=== PATIENT | female | born 1980 | race African-American/Black ===

== ENCOUNTER 2020-09-11 05:44 | Emergency (ER) | payer MEDICAID, SELFPAY ==
[2020-09-11 05:45] VITALS: BP 136/87; PULSE 92; RESP 16; TEMP 36.8; O2SAT 98; BMI 32.1
--- NOTE | 2020-09-11 06:33 | ED.VIS.GEN ---
History of Present Illness Chief Complaint: Other, Pain/Inj Detail of Chief Complaint: poss COVID exposure Informant: Patient Onset: Days - past 2 days Associated Symptoms: none Narrative: 40-year-old female who rode in a car with her son who tested positive for Covid in [place] where she picked him up and drove him back to [place]. He has had no respiratory symptoms. They are unsure of exactly which kind of test they had. There has been no contact with anyone else that she knows of with Covid. She has not had Covid or been vaccinated. She has been asymptomatic. She is healthy and has no medical problems. She was concerned about the exposure and wants to be checked out, she states mainly to make sure she does whatever she can to be allowed to stay with her son. Past Medical History - Allergies and Home Meds Allergies/Adverse Reactions: Allergies acetaminophen [From Vicodin] Allergy (Verified 09/11/20 05:44) Rash hydrocodone bitartrate [From Vicodin] Allergy (Verified 09/11/20 05:44) Rash Primary Care Physician: Viki Durham DO [Primary Care Provider] - Past Medical History: None Smoking Status: Current every day smoker Review of Systems General: Denies: Chills, Fever, Sweats Eyes: Denies: Visual changes - bilaterally, Diplopia ENT: Reports: - - No loss of taste or smell. Denies: Bilateral ear pain, Rhinorrhea, Sore throat Cardiovascular: Denies: Chest pain, Palpitations Respiratory: Denies: Dyspnea, Cough, Dyspnea on exertion Gastrointestinal: Denies: Abdominal pain, Nausea, Vomiting, Diarrhea, Melena, Hematochezia Genitourinary: Denies: Dysuria, Hematuria, Frequency Musculoskeletal: Denies: Myalgias, Back pain, Extremity Pain Skin: Denies: Rash, Wounds Neurological: Denies: Headache, Weakness, Numbness Physical Exam Vital Signs/Narrative: Vital Signs Temp Pulse Resp BP Pulse Ox 09/11/20 05:45 98.2 F 92 16 136/87 H 98 Inital Vital Signs reviewed: Yes General: Well nourished, Well developed, Obese, No Acute Distress Head: Normocephalic, Atraumatic ENT: Moist mucous membranes, No rhinorrhea Neck: Supple, - - FROM Respiratory: No distress Skin: Normal color, No rash, No Trauma Neurological: Alert, Oriented x3, Cranial nerves II-XII grossly intact, Normal Strength, Normal Sensation, Normal Gait Psychological: Normal affect, Normal Mood Diagnostic/Tx/Re-eval - Medical Decision Making Sent an outpatient PCR test, patient given instructions for results, advised to quarantine for 14 days, or to follow-up if she develops any symptoms. ED Disposition - Plan for ED Patient: Disposition: Home or Assisted Living Diagnosis: Close exposure to COVID-19 virus Instructions: Coronavirus Disease 2019 (COVID-19): Prevention, Pending Outpatient COVID Test Referrals: Viki Durham DO [Primary Care Provider] - As Needed Additional Instructions: To be safest, you need to quarantine for 14 days, which would be through September 24. If you do not develop any symptoms, you may then exit quarantine.
[2020-09-11 06:46] VITALS: PULSE 88; RESP 18; TEMP 37.1; O2SAT 98
== END 2020-09-11 07:07 | disposition home or self-care (01) ==
LOC: ED 07:00
PROVIDERS: Emergency Provider Emergency Medicine; PCP Family Medicine
DX: Z20.822 Contact with and (suspected) exposure to COVID-19 (principal); E66.9 Obesity, unspecified; F17.200 Nicotine dependence, unspecified, uncomplicated
CPT/HCPCS: 87635; 99282; U0002

== ENCOUNTER 2021-06-13 13:37 | Emergency (ER) | payer MEDICAID, SELFPAY ==
[2021-06-13 13:38] VITALS: BP 153/72; PULSE 77; RESP 18; TEMP 37.2; O2SAT 100; BMI 41.8
--- NOTE | 2021-06-13 15:07 | EX.ED.VIS.UR ---
HPI HPI - URI History of Present Illness Chief Complaint: Headache Narrative Narrative: 40-year-old female presenting with cough, congestion, fatigue and a mild headache. She states this has been ongoing for 3 days. She states she thought it was from working 12-hour shifts but her son tested positive for COVID and now she is concerned she may have COVID. She was not vaccinated against COVID-19. She states she is interested in monoclonal antibodies. She denies chest pain or shortness of breath. She does not have abdominal pain, nausea, vomiting. She states she has no significant medical history. ROS ROS ED Constitutional Constitutional ED: Denies chills or fever(s) Eyes Eyes: Denies blurry vision or diplopia ENT ENT ED: Reports rhinorrhea; Denies sore throat Cardiovascular Cardiovascular: Denies chest pain or palpitations Respiratory/Chest Respiratory/Chest: Reports cough Gastrointestinal Gastrointestinal: Denies abdominal pain, nausea or vomiting Genitourinary Genitourinary ED: Denies dysuria or hematuria Musculoskeletal Musculoskeletal: Reports myalgias; Denies arthralgias Integumentary Denies rash Neurologic Neurologic: Reports headache(s); Denies paresthesias or weakness PFSH PFS Home Medications NK 09/11/20 [History Last Taken Unknown] Allergy/AdvReac Type Severity Reaction Status Date / Time acetaminophen [From Vicodin] Allergy Rash Verified 06/13/21 13:40 hydrocodone bitartrate Allergy Rash Verified 06/13/21 13:40 [From Vicodin] Social History Smoking Status: Current every day smoker EXAM Physical Exam Const Vital Signs: 06/13/21 13:38 Temperature 99 F Temperature Source Oral Pulse Rate 77 Respiratory Rate 18 Blood Pressure 153/72 H Blood Pressure Mean 99 Pulse Ox 100 Oxygen Delivery Method Room Air Positive well nourished General Appearance ED: NAD; Negative for pallor HEENT Reports moist mucous membranes normocephalic Neck no lymphadenopathy, supple and no meningeal signs Resp normal respiratory effort and clear to auscultation bilaterally Cardio Rate: regular rate Rhythm: regular rhythm Neuro oriented x3 and CN's II-XII intact bilaterally Sensorium / Orientation: alert Psych mental status grossly normal Skin General Skin Exam: Negative for jaundice or pallor Rashes: no rashes MDM MDM MDM Narrative Medical decision making narrative: Patient presenting for a COVID test because she has cough and congestion. Her son has COVID-19 already diagnosed at home. She does request that I refer her for monoclonal antibodies. I did obtain a rapid COVID test which was positive. Patient is referred. Her vital signs are normal. Her O2 saturations are 100% and respiratory rate is 18. Pulse is 77. I do not believe she needs blood work or imaging. Impression: 1. COVID-19 Lab Data Attestation: I reviewed the patient's lab results. Discharge Plan Triage Chief Complaint: Headache ED Provider: Robin Rios Dx/Rx/DC Orders Instructions: Coronavirus Disease 2019 (COVID-19): Caring for Yourself or Others, ED - COVID Monoclonal AB Infusion ... Prescriptions: No Action NK RF: 0 Primary Care Provider: Lilian Byrd Referrals: Lilian Byrd MD [Primary Care Provider] - Disposition Disposition: Home, Self Care
== END 2021-06-13 16:05 | disposition home or self-care (01) ==
PROVIDERS: Emergency Provider Student in an Organized Health Care Education/Training Program; PCP Family Medicine; Visit Provider Student in an Organized Health Care Education/Training Program
DX: U07.1 COVID-19 (principal); F17.200 Nicotine dependence, unspecified, uncomplicated
CPT/HCPCS: 87426; 99282

== ENCOUNTER 2022-05-04 07:45 | Emergency (ER) | payer MEDICAID, SELFPAY ==
[2022-05-04 07:46] VITALS: BP 126/96; PULSE 99; RESP 17; TEMP 35.9; O2SAT 100; BMI 42.5
--- NOTE | 2022-05-04 08:22 | EX.ED.DYSGE1 ---
HPI History of Present Illness Chief Complaint: Flank Pain Informant: patient Narrative Narrative: 41-year-old female arriving to the emergency department stating she does not feel well with left flank pain. She notes pain bilaterally but left greater than right. She notes that she has had increased thirst and cannot seem to quench her thirst. She notes urinary frequency. She also notes some ear pain that developed today. No fever. No diarrhea. No vomiting. PFSH PFSH no medical history Home Medications cyclobenzaprine 10 mg tablet 10 mg PO TID PRN Muscle Spasm #15 TABLETS 05/04/22 [Rx Last Taken Unknown] metformin 500 mg tablet 500 mg PO BID #30 tabs 05/04/22 [Rx Last Taken Unknown] Allergy/AdvReac Type Severity Reaction Status Date / Time acetaminophen [From Vicodin] Allergy Rash Verified 05/04/22 07:46 hydrocodone bitartrate Allergy Rash Verified 05/04/22 07:46 [From Vicodin] no surgical history Social History Smoking Status: Never smoker substance use type: does not use ROS ROS ED Constitutional Constitutional ED: Denies chills or weight loss Eyes Eyes: Denies change in vision or diplopia ENT ENT ED: Denies ear pain, rhinorrhea or sore throat Cardiovascular Cardiovascular: Denies chest pain, orthopnea, palpitations or racing heartbeat Respiratory/Chest Respiratory/Chest: Denies cough, dyspnea or orthopnea Gastrointestinal Gastrointestinal: Reports nausea; Denies abdominal pain, diarrhea or vomiting Genitourinary Genitourinary ED: Denies dysuria, hematuria or urinary frequency Musculoskeletal Musculoskeletal: Reports back pain; Denies arthralgias or myalgias Integumentary Denies abscess or rash Neurologic Neurologic: Denies headache(s) or weakness Psychiatric Psychiatric: Denies anxiety, depression, suicidal ideation or suicidal thoughts Endocrine Endocrinology: Reports polydipsia and polyuria; Denies polyphagia Allergic/Immunologic Allergic/Immunologic ED: Denies mouth swelling, tongue swelling or urticaria EXAM Physical Exam Const Vital Signs: 05/04/22 07:46 Temperature 96.7 F L Temperature Source Temporal Pulse Rate 99 Respiratory Rate 17 Blood Pressure 126/96 H Blood Pressure Mean 106 Pulse Ox 100 Oxygen Delivery Method Room Air Positive well nourished, well developed and obese General Appearance ED: well developed Nutritional Appearance: obese HEENT Reports normocephalic, head/scalp atraumatic and moist mucous membranes Eyes PERRL and EOMs intact bilaterally Neck no lymphadenopathy, supple and no JVD Resp normal respiratory effort and clear to auscultation bilaterally Cardio regular rate, regular rhythm and no murmurs GI normal to inspection, nondistended, normoactive bowel sounds and non-tender Palpation: soft Back/Spine no CVA tenderness Back/Spine Narrative: Lumbar paraspinal musculature tenderness to palpation Extremity normal to inspection General Extremety ED: Negative for edema General Extremity: Negative for edema Neuro oriented x3 and CN's II-XII intact bilaterally Sensorium / Orientation: alert Motor Exam: strength 5/5 throughout Psych mental status grossly normal Mood & Affect: Negative for depressed or tearful Skin no rashes or lesions noted and no wounds MDM MDM MDM Narrative Medical decision making narrative: The patient's blood sugar is greater than 400 and hemoglobin A1c is greater than 10. Urinalysis shows no overt infection. Her back is tender with movement I can prescribe some cyclobenzaprine. And we will start her on metformin 500 mg twice daily. She was advised that this will need to be manipulated based on her blood sugar results. She notes understanding the plan and will call her doctor tomorrow. Lab Data Attestation: I reviewed the patient's lab results. Labs: Laboratory Results - last 24 hr 05/04/22 05/04/22 05/04/22 08:18 08:18 08:18 WBC 9.7 RBC 4.95 Hgb 13.4 Hct 40.2 MCV 81.2 MCH 27.1 MCHC 33.3 RDW Std Deviation 37.7 RDW Coeff of Michelle 12.8 Plt Count 315 MPV 10.5 Immature Gran % (Auto) 0.400 Neut % (Auto) 50.0 Lymph % (Auto) 40.6 [place] % (Auto) 7.2 Eos % (Auto) 1.4 Baso % (Auto) 0.4 Absolute Neuts (auto) 4.8 Absolute Lymphs (auto) 3.94 Nucleated RBC % 0 Sodium 134 L Potassium 3.9 Chloride 101 Carbon Dioxide 24.0 Anion Gap 9 BUN 16 Creatinine 1.21 H Estim Creat Clear Calc 65.50 Est GFR (MDRD) Af Amer 63 Est GFR (MDRD) Non-Af 52 L BUN/Creatinine Ratio 13.2 Glucose 431 H Hemoglobin A1c 10.3 H Calcium 8.8 Total Bilirubin 0.30 AST 43 H ALT 50 Alkaline Phosphatase 89 Total Protein 7.8 Albumin 3.9 Globulin 3.9 Albumin/Globulin Ratio 1.0 Urine Color Urine Clarity Urine pH Ur Specific [place] Urine Protein Urine Glucose (UA) Urine Ketones Urine Occult Blood Urine Nitrite Urine Bilirubin Urine Urobilinogen Ur Leukocyte Esterase Urine RBC Urine WBC Ur Squamous Epith Cells Urine Bacteria Urine Mucus 05/04/22 08:40 WBC RBC Hgb Hct MCV MCH MCHC RDW Std Deviation RDW Coeff of Michelle Plt Count MPV Immature Gran % (Auto) Neut % (Auto) Lymph % (Auto) [place] % (Auto) Eos % (Auto) Baso % (Auto) Absolute Neuts (auto) Absolute Lymphs (auto) Nucleated RBC % Sodium Potassium Chloride Carbon Dioxide Anion Gap BUN Creatinine Estim Creat Clear Calc Est GFR (MDRD) Af Amer Est GFR (MDRD) Non-Af BUN/Creatinine Ratio Glucose Hemoglobin A1c Calcium Total Bilirubin AST ALT Alkaline Phosphatase Total Protein Albumin Globulin Albumin/Globulin Ratio Urine Color Yellow Urine Clarity Clear Urine pH 5.0 Ur Specific [place] 1.020 Urine Protein 30 H Urine Glucose (UA) 1000 H Urine Ketones 50 H Urine Occult Blood 25 H Urine Nitrite Negative Urine Bilirubin Negative Urine Urobilinogen Normal Ur Leukocyte Esterase Negative Urine RBC 0 SEEN Urine WBC 0 SEEN Ur Squamous Epith Cells 0-5 SEEN Urine Bacteria 0 SEEN Urine Mucus 0 SEEN Discharge Plan Triage Chief Complaint: Flank Pain ED Provider: Vincent Fletcher Dx/Rx/DC Orders Clinical Impression: New onset type 2 diabetes mellitus, Acute flank pain Instructions: Type 2 Diabetes Prescriptions: New metformin 500 mg tablet 500 mg PO BID Qty: 30 0RF cyclobenzaprine [cyclobenzaprine] 10 mg tablet 10 mg PO TID PRN (Reason: Muscle Spasm) Qty: 15 0RF Primary Care Provider: Lilian Byrd Referrals: Lilian Byrd MD [Primary Care Provider] - 1-2 Weeks Disposition Disposition: Home, Self Care
[2022-05-04 08:40] LABS: Absolute Lymphocyte Count 3.94 X10^3/uL (0.83-4.51); Absolute Neutrophil Count 4.8 X10^3/uL (2.0-7.7); Basophil# 0.04 X10^3/uL; Basophil% 0.4 % (0-1); Eosinophil# 0.14 X10^3/uL; Eosinophils% 1.4 % (0-5); Hematocrit 40.2 % (37-47); Hemoglobin 13.4 g/dL (12.0-15.0); Lymphocyte # 3.94 X10^3/ul (0.83-4.51); Lymphocyte % 40.6 % (19-41); Mean Corp Hgb Conc 33.3 g/dL (32-36); Mean Corpuscular Hgb 27.1 pg (27.0-32.0); Mean Corpuscular Volume 81.2 fL (81-99); Mean Platelet Vol. 10.5 fl (6.2-12.0); Monocyte% 7.2 % (0-10); NRBC Flagged by Analyzer 0 % (0-5); Neutrophil # 4.84 X10^3/uL (2.7-7.7); Platelet Count 315 K/mm3 (150-450); RBC Distribution Width CV 12.8 % (11.6-14.6); RBC Distribution Width SD 37.7 fl (35.1-43.9); Red Blood Count 4.95 M/mm3 (4.2-5.4); White Blood Count 9.7 K/mm3 (4.4-11.0)
[2022-05-04 08:46] LABS: AST(SGOT) 43 U/L (15-37); Alanine Aminotransfer ALT/SGPT 50 U/L (13-56); Albumin, Serum 3.9 g/dL (3.2-5.0); Alkaline Phosphatase 89 U/L (45-117); Anion Gap 9 (5-15); BUN 16 mg/dL (7-18); BUN/Creat Ratio 13.2 RATIO (10-20); Calcium,Total 8.8 mg/dL (8.5-10.1); Chloride 101 mmol/L (98-107); Creatinine, Serum 1.21 mg/dL (0.55-1.02); EST Glomerular Filtration Rate 52 mL/min (>60); Est Glom Filt Rate - Afr Amer 63 mL/min (>60); Globulin 3.9 g/dL (2.2-4.2); Glucose 431 mg/dL (74-106); Potassium 3.9 mmol/L (3.5-5.1); Protein, Total 7.8 g/dL (6.4-8.2); Sodium Level 134 mmol/L (136-145)
[2022-05-04 08:46] LABS: Bacteria 0 SEEN /hpf (None Seen); Mucous, Urine 0 SEEN /hpf (<or=2+); Red Blood Cells-Urine 0 SEEN /hpf (0-5); White Blood Cells 0 SEEN /hpf (0-5)
[2022-05-04 08:50] LABS: Color, Urine Yellow (Yellow); Glucose, Dipstick 1000 mg/dl (Normal); Ketone-Dipstick 50 mg/dl (Negative); Leukocyte Esterase-Dipstick Negative /ul (Negative); Nitrite-Dipstick Negative (Negative); Occult Blood-Urine 25 /ul (Negative); Protein-Dipstick 30 mg/dl (Negative); Urine Bilirubin Dipstick Negative (Negative); Urine Clarity Clear (Clear); Urine Urobilinogen Normal (Normal)
[2022-05-04 09:13] LABS: Squamous Epithelial Cells - UA 0-5 SEEN /hpf (5-10)
[2022-05-04 09:31] LABS: Hemoglobin A1c 10.3 % (3.8-5.6)
== END 2022-05-04 10:38 | disposition home or self-care (01) ==
PROVIDERS: Emergency Provider Emergency Medicine; PCP Family Medicine; Visit Provider Emergency Medicine
DX: E11.9 Type 2 diabetes mellitus without complications (principal); M54.9 Dorsalgia, unspecified; R10.9 Unspecified abdominal pain; E66.9 Obesity, unspecified; Z79.84 Long term (current) use of oral hypoglycemic drugs
CPT/HCPCS: 80053; 81001; 83036; 85025; 99283; A4216

== ENCOUNTER 2022-06-19 14:31 | Outpatient (RCR) | payer MEDICAID, SELFPAY | END 2022-07-08 23:59 | LOC: DC 14:31 | PROVIDERS: PCP Family Medicine; Visit Provider Family Medicine | DX: E11.9 Type 2 diabetes mellitus without complications (principal) | CPT/HCPCS: 97802 ==

== ENCOUNTER → 2022-07-22 | Outpatient (CLI) | payer MEDICAID, SELFPAY ==
[2022-07-22 12:38] LABS: AST(SGOT) 14 U/L (15-37); Alanine Aminotransfer ALT/SGPT 20 U/L (13-56); Albumin, Serum 3.8 g/dL (3.2-5.0); Alkaline Phosphatase 64 U/L (45-117); Anion Gap 12 (5-15); BUN 10 mg/dL (7-18); BUN/Creat Ratio 10.7 RATIO (10-20); Chloride 106 mmol/L (98-107); Cholesterol 195 mg/dL (200); Creatinine, Serum 0.94 mg/dL (0.55-1.02); EST Glomerular Filtration Rate 70 mL/min (>60); Est Glom Filt Rate - Afr Amer 84 mL/min (>60); Globulin 3.8 g/dL (2.2-4.2); Glucose 311 mg/dL (74-106); High Density Lipoprotein 48 mg/dL; Potassium 4.2 mmol/L (3.5-5.1); Protein, Total 7.6 g/dL (6.4-8.2); Sodium Level 137 mmol/L (136-145); Triglycerides 154 mg/dL; Very Low Density Lipoprotein 31 mg/dL (5-40)
[2022-07-22 12:41] LABS: Microalbumin,Random Urine 49.6 mg/L (NO RANGE EST.); Microalbumin:Creatinine Ratio 52.4 mg/g CRE (<30 mg/g CRE)
[2022-07-22 12:42] LABS: Hemoglobin A1c 13.1 % (3.8-5.6)
== END | disposition home or self-care (01) ==
PROVIDERS: PCP Family Medicine; Visit Provider Family Medicine
DX: E11.9 Type 2 diabetes mellitus without complications (principal)
CPT/HCPCS: 36415; 80053; 80061; 82043; 82570; 83036

== ENCOUNTER → 2023-09-11 | Outpatient (CLI) | payer MEDICAID, SELFPAY ==
[2023-09-17 13:09] LABS: Age Gdln ACOG Testing 30-65 (.); HPV APTIMA, High Risk Negative (Negative)
[2023-09-18 16:52] LABS: HPV Reflexed? YES, CHARGE PATIENT
== END | disposition home or self-care (01) ==
LOC: BFHLAB 13:50 → LABSPEC 13:52
PROVIDERS: PCP Family Medicine; Visit Provider Family Medicine
DX: Z12.4 Encounter for screening for malignant neoplasm of cervix (principal)
CPT/HCPCS: 87624; 88175; G0145

== ENCOUNTER → 2024-05-19 | Outpatient (CLI) | payer MEDICAID, SELFPAY ==
[2024-05-19 12:01] LABS: Absolute Neutrophil Count 3.6 X10^3/uL (2.0-7.7); Basophil# 0.03 X10^3/uL; Basophil% 0.4 % (0-1); Eosinophil# 0.04 X10^3/uL; Eosinophils% 0.6 % (0-5); Hematocrit 41.7 % (37-47); Mean Corp Hgb Conc 31.2 g/dL (32-36); Mean Corpuscular Hgb 25.6 pg (27.0-32.0); Mean Corpuscular Volume 82.2 fL (81-99); Mean Platelet Vol. 10.8 fl (6.2-12.0); Monocyte# 0.45 X10^3/uL; Monocyte% 6.4 % (0-10); NRBC Flagged by Analyzer 0 % (0-5); Neutrophil # 3.62 X10^3/uL (2.7-7.7); Neutrophil % 51.2 % (47-70); Platelet Count 339 K/mm3 (150-450); RBC Distribution Width CV 14.6 % (11.6-14.6); RBC Distribution Width SD 43.3 fl (35.1-43.9); Red Blood Count 5.07 M/mm3 (4.2-5.4); White Blood Count 7.1 K/mm3 (4.4-11.0)
[2024-05-19 12:24] LABS: AST(SGOT) 18 U/L (15-37); Alanine Aminotransfer ALT/SGPT 20 U/L (13-56); Albumin, Serum 3.7 g/dL (3.2-5.0); Alkaline Phosphatase 66 U/L (45-117); Anion Gap 4 (5-15); BUN 7 mg/dL (7-18); BUN/Creat Ratio 7.9 RATIO (10-20); Calcium,Total 9.6 mg/dL (8.5-10.1); Chloride 105 mmol/L (98-107); Cholesterol 177 mg/dL (200); Creatinine, Serum 0.89 mg/dL (0.55-1.02); EST Glomerular Filtration Rate 73 mL/min (>60); Est Glom Filt Rate - Afr Amer 88 mL/min (>60); Globulin 3.8 g/dL (2.2-4.2); Glucose 287 mg/dL (74-106); High Density Lipoprotein 68 mg/dL; Protein, Total 7.5 g/dL (6.4-8.2); Sodium Level 136 mmol/L (136-145); Triglycerides 76 mg/dL; Very Low Density Lipoprotein 15 mg/dL (5-40)
[2024-05-19 12:30] LABS: Microalbumin,Random Urine 20.8 mg/L (NO RANGE EST.); Microalbumin:Creatinine Ratio 12.3 mg/g CRE (<30 mg/g CRE)
[2024-05-19 12:56] LABS: Hemoglobin A1c 13.6 % (3.8-5.6)
[2024-05-23 09:22] LABS: C-Peptide 2.6 ng/mL (1.1-4.4); Insulin Level 9.5 uIU/mL (2.6-24.9)
== END | disposition home or self-care (01) ==
LOC: BFHLAB 09:59
PROVIDERS: PCP Family Medicine; Referring Provider Family Medicine; Visit Provider Family Medicine
DX: E11.9 Type 2 diabetes mellitus without complications (principal); R63.4 Abnormal weight loss
CPT/HCPCS: 36415; 80053; 80061; 82043; 82570; 83036; 83525; 84681; 85025

== ENCOUNTER → 2024-06-14 | Outpatient (CLI) | payer BC, SELFPAY ==
--- NOTE | 2024-06-14 08:24 | BI_ITS ---
MAMMOGRAPHY - BILATERAL SCREENING REASON FOR EXAM: Female, 43 years old. Routine annual screening examination. PERTINENT HISTORY: Non-contributory. TECHNIQUE: Digital bilateral breast kushal (3D mammographic acquisition) in the CC and MLO projections. 2-D mediolateral oblique (MLO) and craniocaudad (CC) views of both breasts were obtained. CAD: Full Field Digital Mammography with Computer Added Detection was performed. COMPARISON: Comparison is made with prior outside examination dated January 11, 2021. FINDINGS: Breast Composition: There are scattered areas of fibroglandular density. There are no dominant masses or suspicious calcifications. No other significant abnormalities are identified. There has been no significant change since the prior study. BI/SCRN MAMM (CAD)W/KUSHAL BILAT IMPRESSION: Stable bilateral screening mammogram. Yearly follow-up mammogram recommended. (A) ASSESSMENT CATEGORY: BIRADS Category 1: Negative. A letter regarding these results will be sent to the patient by the facility within 30 days. Approximately 10% of breast cancers are not detected by mammography. A normal mammogram should not delay biopsy of a clinically suspicious abnormality. [id number] Electronically Signed: Tyrone Rodriguez MD at 11:07 EST ,
== END | disposition home or self-care (01) ==
LOC: OPBI 08:23
PROVIDERS: PCP Family Medicine; Referring Provider Family Medicine; Visit Provider Family Medicine
DX: Z12.31 Encounter for screening mammogram for malignant neoplasm of breast (principal)
CPT/HCPCS: 77063; 77067

== ENCOUNTER 2024-07-26 06:17 | Day surgery (SDC) | payer BC, SELFPAY ==
--- NOTE | 2024-06-24 10:34 | PAT.ANE_ITS ---
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 When Was Last Pacemaker Check QUESTION #4 FULL TEXT: You/Your Family Experience fever (hyperthermia) with Anesthesia Last Oral Intake Last Oral intake: Last Oral Intake NPO since Meds taken in AM with sips of water? Meds patient instructed to take am of surgery PONV PONV - computer systems software engineer: PONV - computer systems software engineer Female Yes 06/24/24 09:48 HX of Motion Sickness No 06/24/24 09:48 HX of N/V After Surgery No 06/24/24 09:48 Non-Smoker Yes 06/24/24 09:48 Duration of Surgery greater No 06/24/24 09:48 than 60 minutes Number of Risk Factors 2 06/24/24 09:48 PONV Score Moderate Risk 06/24/24 09:48 Height & Weight Height & Weight: Anesthesia: Height & Weight Height 5 ft 11 in 05/30/24 09:50 Respiratory Assessment Respiratory Assessment - computer systems software engineer: Respiratory Tract Infection Hx - computer systems software engineer Hx Respiratory Tract Infection No 06/24/24 09:48 STOP Sleep Apnea STOP Sleep Apnea - computer systems software engineer: STOP Sleep Apnea - computer systems software engineer Hx Hypertension No 06/24/24 09:48 Hx Sleep Apnea No 06/24/24 09:48 CPAP BIPAP Do you snore loudly (louder No 06/24/24 09:48 than talking or can be heard Do you often feel tired/ No 06/24/24 09:48 fatigued/ sleepy during daytime? Has anyone observed you stop No 06/24/24 09:48 breathing during sleep? STOP Results Negative 06/24/24 09:48 QUESTION #5 FULL TEXT : Do you snore loudly (louder than talking or can be heard through closed doors)? 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 Specify any problems Hx of Preganancy in last 3 No 06/24/24 09:48 Months Nurse Filling Out Transfusion DSCHRIBER 06/24/24 09:48 & Questions: Date: 06/24/24 06/24/24 09:48 Time: 09:50 06/24/24 09:48 Patient unable to answer at this time (ie. confused, unrespo /Reproduction History /Reproductive History - computer systems software engineer: /Reproductive Hx- computer systems software engineer Hx Now No 06/24/24 09:48 Gestational Age (in weeks): EDC: Hx Hx Para Hx Section SAB No 06/24/24 09:48 [facility] Medical History (Updated 06/24/24 @ 09:59 by Christy Castrejon) Depression Wears glasses Foot abrasion Diabetes Arthritis Dietary restriction History of diverticulitis Smoker Shortness of breath on exertion History of pain when walking Acid reflux Diarrhea Constipation Home Medications ?Medication ?Instructions ?Recorded ?Last Taken ?Type cyclobenzaprine 10 mg tablet 10 mg PO TID PRN Muscle Spasm #15 05/04/22 Unknown Rx TABLETS metformin 500 mg tablet 500 mg PO BID #30 tabs 05/04/22 Unknown Rx dulaglutide 3 mg/0.5 mL 3 mg subcut WE 05/30/24 06/22/24 History subcutaneous pen injector (Trulicity) esomeprazole magnesium 20 mg 20 mg PO DAILY 06/24/24 Unknown History capsule,delayed release fluoxetine 10 mg capsule 10 mg PO DAILY 06/24/24 Unknown History latanoprost 0.005 % eye drops 1 drp ophthalmic (eye) QHS 06/24/24 Unknown History lisinopril 2.5 mg tablet 2.5 mg PO DAILY 06/24/24 Unknown History Allergy/AdvReac Type Severity Reaction Status Date / Time acetaminophen (From Vicodin) Allergy Rash Verified 06/24/24 09:46 hydrocodone bitartrate (From Allergy Rash Verified 06/24/24 09:46 Vicodin) Surgical History (Updated 06/24/24 @ 09:56 by Christy Castrejon) Hx of tubal ligation Social History Smoking Status: Current every day smoker tobacco type: cigarettes alcohol intake: never substance use type: does not use Audit: Pertinent Findings Pertinent Findings Additional pertinent findings: Patient is a diabetic. Her hemoglobin A1c is 13.6 and has been elevated over 10 at least for the past 2 years. Recommendation Anesthesia Recommendation Anesthesia recommendation: F/U recommended (Patient is diabetic. She is on Trulicity and had her last dose on June 22, 2024. Trulicity is a GLP-1 agonist which slows down gut motility and stomach emptying. Current recommendations for GLP-1 agonist before procedures is to hold them for 1 week. Please reschedule accordingly.)
[2024-07-26] VITALS (8 sets, daily range): BP systolic 103–132; BP diastolic 49–80; PULSE 76–95; RESP 16; TEMP 36.2–36.5; O2SAT 100; BMI 35.1
--- NOTE | 2024-07-26 07:08 | PCM.PRE.AN2 ---
ASA Classification* ASA Classification ASA Classification: 2 Assessment & Plan Anesthesia* Anesthesia Assessment Anesthesia Assessment: Discussed sedation and/or anesthesia options, risks, benefits, and alternatives with patient/parents/legal guardian/POA. Questions invited. The patient/parents/legal guardian/POA seems to understand and agrees to proceed with anesthesia plan. Reviewed the physical assessment, medical history, allergy history and patient home medications list prior to surgery/procedure/anesthetic and documented any changes. Performed airway and anesthesia risk assessments. Anesthesia Type Anesthesia Type: MAC History Source History Obtained from:: Patient and Chart Anesthesia Focused Assessment* Temperature: 97.1 F Pulse Rate: 84 Blood Pressure: 132/80 Respiratory Rate: 16 Pulse Ox: 100 Oxygen Delivery Method: Room Air Airway Assessment Mouth opens: >3 cm Mallampati Score: II Teeth Condition: Missing (Several missing teeth. The rest are tight.) Neck Range of motion (ROM): Full ROM Focused Labs Anesthesia Preop lab: CBC WBC 7.1 K/mm3 (4.4-11.0) 05/19/24 09:59 05/19/24 RBC 5.07 M/mm3 (4.2-5.4) 05/19/24 09:59 05/19/24 Hgb 13.0 g/dL (12.0-15.0) 05/19/24 09:59 05/19/24 Hct 41.7 % (37-47) 05/19/24 09:59 05/19/24 Plt Count 339 K/mm3 (150-450) 05/19/24 09:59 05/19/24 CHEMISTRY Potassium 4.0 mmol/L (3.5-5.1) 05/19/24 09:59 05/19/24 Sodium 136 mmol/L (136-145) 05/19/24 09:59 05/19/24 BUN 7 mg/dL (7-18) 05/19/24 09:59 05/19/24 Creatinine 0.89 mg/dL (0.55-1.02) 05/19/24 09:59 05/19/24 Glucose 287 mg/dL (74-106) H 05/19/24 09:59 05/19/24 TSH 1.24 uIU/mL (0.358-3.74) 05/19/14 09:46 05/19/14 COAG Lab additional comments: Fingerstick glucose was 126 this morning. 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 When Was Last Pacemaker Check QUESTION #4 FULL TEXT: You/Your Family Experience fever (hyperthermia) with Anesthesia Last Oral Intake Last Oral intake: Last Oral Intake NPO since 00:00 07/26/24 06:42 Meds taken in AM with sips of water? 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 Female Yes 06/24/24 09:48 HX of Motion Sickness No 06/24/24 09:48 HX of N/V After Surgery No 06/24/24 09:48 Non-Smoker Yes 06/24/24 09:48 Duration of Surgery greater No 06/24/24 09:48 than 60 minutes Number of Risk Factors 2 06/24/24 09:48 PONV Score Moderate Risk 06/24/24 09:48 Height & Weight Height & Weight: Anesthesia: Height & Weight Height 5 ft 11 in 07/26/24 06:42 Weight: 114.305 kg 07/26/24 06:42 Body Mass Index (BMI) 35.1 07/26/24 06:42 Respiratory Assessment Respiratory Assessment - tile and 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 No fevers.) STOP Sleep Apnea STOP Sleep Apnea - tile and mottle supervisor: STOP Sleep Apnea - tile and mottle supervisor Hx Hypertension No 06/24/24 09:48 Hx Sleep Apnea No 06/24/24 09:48 CPAP BIPAP Do you snore loudly (louder No 06/24/24 09:48 than talking or can be heard Do you often feel tired/ No 06/24/24 09:48 fatigued/ sleepy during daytime? Has anyone observed you stop No 06/24/24 09:48 breathing during sleep? STOP Results Negative 06/24/24 09:48 QUESTION #5 FULL TEXT : Do you snore loudly (louder than talking or can be heard through closed doors)? 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 Specify any problems Hx of Preganancy in last 3 No 06/24/24 09:48 Months Nurse Filling Out Transfusion DSCHRIBER 06/24/24 09:48 & Questions: Date: 06/24/24 06/24/24 09:48 Time: 09:50 06/24/24 09:48 Patient unable to answer at this time (ie. 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 supervisor: /Reproductive Hx- tile and mottle supervisor Hx Now No 06/24/24 09:48 Gestational Age (in weeks): EDC: Hx Hx Para Hx Section SAB No 06/24/24 09:48 PFSH Medical History Depression Wears glasses Foot abrasion Diabetes Arthritis Dietary restriction History of diverticulitis Smoker Shortness of breath on exertion History of pain when walking Acid reflux Diarrhea Constipation Home Medications ?Medication ?Instructions ?Recorded ?Last Taken ?Type cyclobenzaprine 10 mg tablet 10 mg PO TID PRN Muscle Spasm #15 05/04/22 Unknown Rx TABLETS metformin 500 mg tablet 500 mg PO BID #30 tabs 05/04/22 07/24/24 Rx dulaglutide 3 mg/0.5 mL 3 mg subcut WE 05/30/24 07/13/24 History subcutaneous pen injector (Trulicity) esomeprazole magnesium 20 mg 20 mg PO DAILY 06/24/24 Unknown History capsule,delayed release fluoxetine 10 mg capsule 10 mg PO DAILY 06/24/24 Unknown History latanoprost 0.005 % eye drops 1 drp ophthalmic (eye) QHS 06/24/24 Unknown History lisinopril 2.5 mg tablet 2.5 mg PO DAILY 06/24/24 Unknown History Allergy/AdvReac Type Severity Reaction Status Date / Time hydrocodone bitartrate (From Allergy Rash Verified 07/26/24 06:40 Vicodin) Surgical History Hx of tubal ligation Social History Smoking Status: Current every day smoker tobacco type: cigarettes alcohol intake: never substance use type: does not use Review of Systems (Anesthesia) ROS Narrative System reviewed and no additional complaints, except as documented.
[2024-07-26 07:20] LABS: Bedside Glucose 129 mg/dL (74-106)
--- NOTE | 2024-07-26 07:27 | HP.PCM_ITS ---
HPI - General General Date of Admission: 07/26/24 Date of Service: 07/26/24 Chief Complaint: Colonoscopy HPI Narrative The patient is a 43-year-old female who is here today to undergo colonoscopy. She has had some recent constipation as well as some abdominal discomfort. She does have a cousin with a history of colon cancer [facility] Medical History Depression Wears glasses Foot abrasion Diabetes Arthritis Dietary restriction History of diverticulitis Smoker Shortness of breath on exertion History of pain when walking Acid reflux Diarrhea Constipation Home Medications ?Medication ?Instructions ?Recorded ?Last Taken ?Type cyclobenzaprine 10 mg tablet 10 mg PO TID PRN Muscle S pasm #15 05/04/22 Unknown Rx TABLETS metformin 500 mg tablet 500 mg PO BID #30 tabs 05/0407/24/24 Rx dulaglutide 3 mg/0.5 mL 3 mg subcut WE 05/30/2410/30 History subcutaneous pen injector (Trulicity) esomeprazole magnesium 20 mg 20 mg PO DAILY 06/24/24 U nknown History capsule,delayed release fluoxetine 10 mg capsule 10 mg PO DAILY 06/24/24 Unkn own History latanoprost 0.005 % eye drops 1 drp ophthalmic (eye) Q HS 06/24/24 Unknown History lisinopril 2.5 mg tablet 2.5 mg PO DAILY 06/24/24 Unk nown History Allergy/AdvReac Type Severity Reaction Status Date / Time hydrocodone bitartrate (From Allergy Rash Verified 07/26/24 06:40 Vicodin) Surgical History Hx of tubal ligation Social History Smoking Status: Current every day smoker (Patient smoked today.) tobacco type: cigarettes alcohol intake: never substance use type: does not use ROS Eyes Eyes: Reports systems reviewed and no addt'l complaints, except as documented ENT HEENT: Reports systems reviewed and no addt'l complaints, except as documented Cardiovascular Cardiovascular: Reports systems reviewed and no addt'l complaints, except as documented Respiratory/Chest Respiratory/Chest: Reports systems reviewed and no addt'l complaints, except as documented Gastrointestinal Gastrointestinal: Reports systems reviewed and no addt'l complaints, except as documented Genitourinary Genitourinary: Reports systems reviewed and no addt'l complaints, except as documented Vital Signs Vital Signs Vital Signs: 07/26/24 06:42 07/26/24 06:42 07/26/24 07:19 Temperature 97.1 F L 97.1 F L Temperature Source Temporal Pulse Rate 84 84 Respiratory Rate 16 16 Respiratory Pattern Normal Blood Pressure 132/80 H 132/80 H Blood Pressure Mean 97 Blood Pressure Source Monitor Blood Pressure Position Semi-Fowlers Blood Pressure Location Left Arm Pulse Ox 100 100 Oxygen Delivery Method Room Air Room Air Weight Weight: 252 lb Body Mass Index (BMI) 35.1 Physical Exam Const alert, oriented x3 and no apparent distress Results Lab / Micro Data Labs: Laboratory Results - last 24 hr 07/26/24 06:44: POC Glucose 129 H Assessment & Plan Assessment/Plan (1) Constipation: PLAN: Plan The patient is a 43-year-old female in need of a colonoscopy. We discussed the details of the planned procedure and she wishes to proceed. This will begin momentarily
--- NOTE | 2024-07-26 07:30 | COLBX_PTH ---
PATIENT: ESTRELLA GONZALEZ LOC: EN U#:[id number] AGE/SX: 43/F ROOM: RE07/26/[address]: Dr. Sonu Bueno MD : 1980 BED: DIS: 07/26/2024 SPEC #: [id number] RECD: 07/26/24 10:41 STATUS: HUNTER REMichael #: [id number] FELIPE: 07/26/24 07:[address]: Sonu Bueno DEPT: SURGICAL PATHOLOGY RECD BY: Sue Matta ENTERED: 07/26/24 12:05 SP TYPE: COLON BX OTHR DR: Dr. Lilian Byrd MD Tissues: Sigmoid colon biopsy Procedures: Surgery Specimen Level IV HEADER OPERATION: Colonoscopy PRE-OP DIAGNOSIS: Constipation TISSUE SUBMITTED: Sigmoid polyp biopsy MICROSCOPIC DIAGNOSIS Sigmoid polyp, biopsy: Hyperplastic polyp. 07/27/2024 MICROSCOPIC DESCRIPTION Slides are reviewed. GROSS DESCRIPTION Received in fixative is one container labeled with the patient's name and designated Sigmoid polyp biopsy. The specimen consists of two irregular fragments of light hughes soft tissue that in aggregate measure 0.7 x 0.3 x 0.2 cm. The specimen is totally submitted in one cassette. 07/26/2024 TC:1 CPT:46318
--- NOTE | 2024-07-26 08:39 | PCM.POST.ANE ---
Anesthesia: Postop Eval I Current Vital Signs Temperature: 97.5 F Pulse Rate: 88 Blood Pressure: 112/79 Respiratory Rate: 16 Pulse Ox: 100 Oxygen Delivery Method: Room Air Assessment Airway patent: Yes Spontaneous unlabored respirations: Yes Mental status: Awake and Calm nausea: No Vomiting: No Anesthesia Complication: No Fluid Hydration Crystalloid volume administer (ml): 50 Total IV fluid infused: 50 Progress Note Anesthesia document: Postop Eval 1 completed: Yes
--- NOTE | 2024-07-26 08:40 | OP.CCLET_ITS ---
07/26/2024 Lilian Byrd [place] [id number] [place] [address] Re : Colonoscopy procedure for Matthew Mc Dear Dr. Byrd This procedure was performed on Friday, July 26, 2024. My impressions and recommendations are as follows: Impressions : - Preparation of the colon was unsatisfactory. - Diverticulosis in the sigmoid colon. - One 4 mm polyp in the sigmoid colon, removed with a cold biopsy forceps. Resected and retrieved. - The examination was otherwise normal on direct and retroflexion views. Recommendations : - Discharge patient to home (ambulatory). - High fiber diet indefinitely. - Await pathology results. - Repeat colonoscopy in 3 - 5 years for surveillance. - Return to my office PRN. - Continue present medications. My findings are described in the full procedure note, which is enclosed. If I can be of further assistance, please feel free to contact me at . Sincerely, Sonu Bueno MD 07/26/2024 8:39:23 AM This report has been signed electronically.
--- NOTE | 2024-07-26 08:40 | OP.COLON_ITS ---
Patient Name: Matthew Mc Procedure Date: 07/26/2024 7:55 AM Date of : 1980 Age: 43 Procedure: Colonoscopy Indications: Screening for colorectal malignant neoplasm Providers: Sonu Bueno MD Referring MD: Lilian Byrd Medicines: Monitored Anesthesia Care Patient Profile: Refer to note in patient chart for documentation of history and physical. Last Colonoscopy: several years ago. Complications: No immediate complications. Estimated blood loss: None. Procedure: Pre-Anesthesia Assessment: - Prior to the procedure, a History and Physical was performed, and patient medications and allergies were reviewed. The patient's tolerance of previous anesthesia was also reviewed. The risks and benefits of the procedure and the sedation options and risks were discussed with the patient. All questions were answered, and informed consent was obtained. Prior Anticoagulants: The patient has taken no anticoagulant or antiplatelet agents. ASA Grade Assessment: II - A patient with mild systemic disease. After reviewing the risks and benefits, the patient was deemed in satisfactory condition to undergo the procedure. After I obtained informed consent, the scope was passed under direct vision. Throughout the procedure, the patient's blood pressure, pulse, and oxygen saturations were monitored continuously. The adult colonoscope was introduced through the anus and advanced to the cecum, identified by appendiceal orifice and ileocecal valve. The ileocecal valve, appendiceal orifice, and rectum were photographed. The entire colon was examined. The colonoscopy was somewhat difficult due to unsatisfactory bowel prep. The patient tolerated the procedure well. The quality of the bowel preparation was unsatisfactory. Moderate Sedation: See the other procedure note for documentation of moderate sedation with intraservice time. Scope In: 8:04:31 AM Scope Withdrawal Time 0 hours 20 minutes 18 seconds Scope Out: 8:32:35 AM Total Procedure Duration Time 0 hours 28 minutes 4 seconds Findings: The perianal and digital rectal examinations were normal. Multiple small and large-mouthed diverticula were found in the sigmoid colon. A 4 mm polyp was found in the sigmoid colon. The polyp was semi-sessile. The polyp was removed with a cold biopsy forceps. Resection and retrieval were complete. Verification of patient identification for the specimen was done by the nurse using the patient's name, date and medical record number. Estimated blood loss was minimal. The exam was otherwise without abnormality on direct and retroflexion views. Impression: - Preparation of the colon was unsatisfactory. - Diverticulosis in the sigmoid colon. - One 4 mm polyp in the sigmoid colon, removed with a cold biopsy forceps. Resected and retrieved. - The examination was otherwise normal on direct and retroflexion views. Recommendation: - Discharge patient to home (ambulatory). - High fiber diet indefinitely. - Await pathology results. - Repeat colonoscopy in 3 - 5 years for surveillance. - Return to my office PRN. - Continue present medications. Procedure Code(s): --- Professional --- 79364, Colonoscopy, flexible; with biopsy, single or multiple Diagnosis Code(s): --- Professional --- Z12.11, Encounter for screening for malignant neoplasm of colon K57.30, Diverticulosis of large intestine without perforation or abscess without bleeding D12.5, Benign neoplasm of sigmoid colon CPT copyright 2021 [employer]. All rights reserved. The codes documented in this report are preliminary and upon home assessment nurse review may be revised to meet current compliance requirements. Sonu Bueno MD 07/26/2024 8:39:23 AM This report has been signed electronically. Number of Addenda: 0 Note Initiated On: 07/26/2024 7:55 AM
--- NOTE | 2024-07-26 10:57 | PCM.POSTANE2 ---
Anesthesia Postop Eval I Sum Postop Eval Completion status Anesthesia document: Postop Eval 1 completed: Yes Anesthesia Postop Eval I Summary Anesthesia Postop Eval I Summary: Anesthesia Postop Eval I: Assessment Summary Airway patent Yes 07/26/24 08:41 [email or web address] Spontaneous unlabored Yes 07/26/24 08:41 [email or web address] respirations Mental status Awake,Calm 07/26/24 08:41 [email or web address] nausea No 07/26/24 08:41 [email or web address] Vomiting No 07/26/24 08:41 [email or web address] Anesthesia Postop Eval I: Fluid Summary Crystalloid volume administer 50 07/26/24 08:41 [email or web address] (ml) Colloids volume administered ( ml) Blood Product volume administered (ml) Total IV fluid infused 50 07/26/24 08:41 [email or web address] Anesthesia Postop Eval I: Summary Notes Anesthesia Complication No 07/26/24 08:41 [email or web address] Anesthesia Complication Comment: Post-operative progress note Anesthesia: Postop Eval II Evaluation Mental status: Awake and Calm Pain Level: 0 nausea: No Vomiting: No Complications Anesthesia Complication: No
== END 2024-07-26 09:07 | disposition home or self-care (01) ==
LOC: EN 06:18 → AC 06:19
PROVIDERS: PCP Family Medicine; Referring Provider Family Medicine; Visit Provider Surgery
PROC: 0DJD8ZZ Inspection of Lower Intestinal Tract, Via Natural or Artificial Opening Endoscopic (ICD-10-PCS; CPT 45378; principal; 2024-07-26 07:25)
DX: Z12.11 Encounter for screening for malignant neoplasm of colon (principal); E11.9 Type 2 diabetes mellitus without complications; D12.5 Benign neoplasm of sigmoid colon; K57.30 Diverticulosis of large intestine without perforation or abscess without bleeding; K59.00 Constipation, unspecified; Z79.84 Long term (current) use of oral hypoglycemic drugs; Z79.85 Long-term (current) use of injectable non-insulin antidiabetic drugs; Z79.899 Other long term (current) drug therapy; Z80.0 Family history of malignant neoplasm of digestive organs
CPT/HCPCS: 45380; 82962; 88305; A4216; J2405

== ENCOUNTER → 2025-05-19 | Outpatient (CLI) | payer MEDICAID, SELFPAY ==
--- OUTSIDE RECORDS SUMMARY | 2025-05-19 11:01 | XMS RPT_ITS | CCD ---
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 Role Phone PHYSICIAN, NOT RECORDED Primary Care Physician U Joshua Trinidad MD Primary Care Provider Joshua Vera MD Primary Care Provider Mikarina, Lilian Primary Care Unavailable Miedel, Lilian Referring Unavailable Sonu Bueno Attending Unavailable Miedel, Lilian Referring Unavailable Miedel, Lilian Attending Unavailable Miedel, Lilian Primary Care Unavailable Miedel, Lilian Primary Care Unavailable Miedel, Lilian Referring Unavailable Miedel, Lilian Attending Unavailable Miedel, Lilian Primary Care Unavailable Miedel, Lilian Referring Unavailable Sonu Bueno Attending Unavailable Miedel, Lilian Primary Care Unavailable Miedel, Lilian Referring Unavailable Sonu Bueno Attending Unavailable Sonu Bueno Consulting Unavailable Allergies Allergy Classification Reported Allergen(s) Allergy Type Date of Onset Reaction(s) Facility (3 sources) Acetaminophen Drug Allergy 05-04-2022 [facility] (4 sources) HYDROcodone; Translations: [hydrocodone bitartrate] Drug Allergy 05-04-2022 [facility] (3 sources) Acetaminophen / HYDROcodone; Translations: [acetaminophen-hyd rocodone] Drug Allergy 05-27-2013 [facility] (1 source) Acetaminophen Drug Allergy 05-30-2024 [facility] Medications Current Medications Medication Drug Class(es) Dates Sig (Normalized) Sig (Original) acetaminophen 325 mg / oxyCODONE hydrochloride 5 mg oral tablet (1 source) Opioid Agonist Start: 01-22-2023 End: 01-25-2023 take 1 tablet by mouth every six hours as needed for pain Percocet 5 mg-325 mg oral tablet Dose = 1 tab(s), Oral, q6h, PRN Pain, X 3 day(s), # 8 tab(s), 0 Refill(s), Diverticulitis, 9.7 Start Date: 01/22/23 Stop Date: 01/25/23 Status: Ordered ciprofloxacin 500 mg oral tablet (1 source) Quinolone Antimicrobial Start: 01-22-2023 End: 01-29-2023 Cipro 500 mg oral tablet Dose : 500 mg = 1 tab(s), Oral, q12h, X 7 day(s), # 13 tab(s), 0 Refill(s), 01/29/23 9:53:00 PM EDT, 9.7 Start Date: 01/22/23 Stop Date: 01/29/23 Status: Ordered cyclobenzaprine hydrochloride 10 mg oral tablet (3 sources) Muscle Relaxant Start: 05-04-2022 take 10 mg by mouth three times daily Cyclobenzaprine Active 10 MG PO THREE TIMES A DAY May 04, 2022 1:00am ibuprofen 800 mg oral tablet (2 sources) Nonsteroidal Anti-inflammatory Drug Start: 04-09-2021 take 1 tablet by mouth every eight hours as needed ibuprofen (MOTRIN) 800 mg tablet Take 1 tablet by mouth every 8 hours as needed (FOR PAIN. TAKE WITH FOOD). 30 tablet 1 04/09/2021 Active Comment on above: Take 1 tablet by janeen th every 8 hours as needed (FOR PAIN. TAKE WITH FOOD). metFORMIN hydrochloride 500 mg oral tablet (3 sources) Biguanide Start: 05-04-2022 take 500 mg by mouth twice daily Metformin Active 500 MG PO TWICE A DAY May 04, 2022 1:00am metroNIDAZOLE 500 mg oral tablet (1 source) Nitroimidazole Antimicrobial Start: 01-22-2023 End: 01-29-2023 metroNIDAZOLE 500 mg oral tablet Dose : 500 mg = 1 tab(s), Oral, q8h, X 7 day(s), # 20 tab(s), 0 Refill(s), 01/29/23 9:54:00 PM EDT, 9.7 Start Date: 01/22/23 Stop Date: 01/29/23 Status: Ordered ondansetron 4 mg disintegrating oral tablet (1 source) Serotonin-3 Receptor Antagonist Start: 01-22-2023 End: 01-25-2023 ondansetron 4 mg oral tablet, disintegrating Dose : 4 mg = 1 tab(s), Oral, q8h, PRN as needed for nausea/vomiting, X 3 day(s), # 8 tab(s), 0 Refill(s), 01/25/23 9:53:00 PM EDT Start Date: 01/22/23 Stop Date: 01/25/23 Status: Ordered Problems Active Problems Problem Classification Problem Date Documented Da te Episodic/Chronic Diabetes mellitus without complication (6 sources) Type 2 diabetes mellitus; Translations: [Type 2 diabetes mellitus without complications] Onset: 12-27-2020 05-12-2022 Chronic Disorders of teeth and jaw (3 sources) Pain; Translations: [Dental caries, unspecified] 07-20-2013 Episodic Diverticulosis and diverticulitis (2 sources) Diverticula of intestine; Translations: [Diverticulitis of intestine, part unspecified, without perforation or abscess without bleeding] Onset: 01-22-2023 Chronic Fever of unknown origin (3 sources) Fever; Translations: [Fever, unspecified] 06-18-2021 Episodic Immunizations and screening for infectious disease (6 sources) Contact with or exposure to other viral diseases; Translations: [Close exposure to COVID-19 virus] 09-12-2020 Episodic Osteoarthritis (4 sources) Primary gonarthrosis, bilateral; Translations: [Bilateral primary osteoarthritis of knee] Onset: 12-24-2020 12-24-2020 Chronic Other gastrointestinal disorders (2 sources) Constipation, unspecified; Translations: [Constipation, unspecified] Onset: 08-19-2024 Episodic Substance-related disorders (4 sources) Smoker; Translations: [Nicotine dependence, unspecified, uncomplicated] Onset: 12-17-2020 12-17-2020 Chronic Past or Other Problems Problem Classification Problem Date Documented Da te Episodic/Chronic Abdominal pain (7 sources) Flank pain; Translations: [Unspecified abdominal pain] Onset: 05-27-2013 05-12-2022 Episodic Other screening for suspected conditions (not mental disorders or infectious disease) (4 sources) Patient encounter status; Translations: [Encounter for screening mammogram for malignant neoplasm of breast] Onset: 07-06-2024 02-11-2023 Episodic Ovarian cyst (2 sources) Complex cyst of right ovary; Translations: [Other ovarian cyst, right side] Onset: 12-24-2020 12-24-2020 Episodic Residual codes; unclassified (2 sources) Family history of leukemia; Translations: [Family history of leukemia] Onset: 12-17-2020 12-17-2020 Episodic Results Test Name Value Interpretation Reference Range Facility Bedside Glucoseon 07-26-2024 FINGERSTICK GLU 129 mg/dL High 74-106 [facility] Comment on above: Result Comment: JORGE BLAND OF PATIENT CARE PER NURSING PROTOCOL Performed By: #### L 501.080 #### [facility] [address] [place], [address] Colonoscopy Reporton 025 Colonoscopy Report [facility] Medical Records Department [address] [place] [address] Colonoscopy Report MR#: [id number] Acct: [id number] Name: ESTRELLA MC Rep #: [id number] : 1980 43 From: Sonu Bueno MD PCP: Dr. Lilian Byrd MD Status:[facility] Patient Name: Estrella Mc Procedure Date: 07/26/2024 7:55 AM Date of : 1980 Age: 43 Procedure: Colonoscopy Indications: Screening for colorectal malignant neoplasm Providers: Sonu Bueno MD Referring MD: Lilian Byrd Medicines: Monitored Anesthesia Care Patient Profile: Refer to note in patient chart for documentation of history and physical. Last Colonoscopy: several years ago. Complications: No immediate complications. Estimated blood loss: None. Procedure: Pre-Anesthesia Assessment: - Prior to the procedure, a History and Physical was performed, and patient medications and allergies were reviewed. The patient's tolerance of previous anesthesia was also reviewed. The risks and benefits of the procedure and the sedation options and risks were discussed with the patient. All questions were answered, and informed consent was obtained. Prior Anticoagulants: The patient has taken no anticoagulant or antiplatelet agents. ASA Grade Assessment: II - A patient with mild systemic disease. After reviewing the risks and benefits, the patient was deemed in satisfactory condition to undergo the procedure. After I obtained informed consent, the scope was passed under direct vision. Throughout the procedure, the patient's blood pressure, pulse, and oxygen saturations were monitored continuously. The adult colonoscope was introduced through the anus and advanced to the cecum, identified by appendiceal orifice and ileocecal valve. The ileocecal valve, appendiceal orifice, and rectum were photographed. The entire colon was examined. The colonoscopy was somewhat difficult due to unsatisfactory bowel prep. The patient tolerated the procedure well. The quality of the bowel preparation was unsatisfactory. Moderate Sedation: See the other procedure note for documentation of moderate sedation with intraservice time. Scope In: 8:04:31 AM Scope Withdrawal Time 0 hours 20 minutes 18 seconds Scope Out: 8:32:35 AM Total Procedure Duration Time 0 hours 28 minutes 4 seconds Findings: The perianal and digital rectal examinations were normal. Multiple small and large-mouthed diverticula were found in the sigmoid colon. A 4 mm polyp was found in the sigmoid colon. The polyp was semi-sessile. The polyp was removed with a cold biopsy forceps. Resection and retrieval were complete. Verification of patient identification for the specimen was done by the nurse using the patient's name, date and medical record number. Estimated blood loss was minimal. The exam was otherwise without abnormality on direct and retroflexion views. Impression: - Preparation of the colon was unsatisfactory. - Diverticulosis in the sigmoid colon. - One 4 mm polyp in the sigmoid colon, removed with a cold biopsy forceps. Resected and retrieved. - The examination was otherwise normal on direct and retroflexion views. Recommendation: - Discharge patient to home (ambulatory). - High fiber diet indefinitely. - Await pathology results. - Repeat colonoscopy in 3 - 5 years for surveillance. - Return to my office PRN. - Continue present medications. Procedure Code(s): --- Professional --- 42783, Colonoscopy, flexible; with biopsy, single or multiple Diagnosis Code(s): --- Professional --- Z12.11, Encounter for screening for malignant neoplasm of colon K57.30, Diverticulosis of large intestine without perforation or abscess without bleeding D12.5, Benign neoplasm of sigmoid colon CPT copyright 2021 [employer] [place] [employer]. All rights reserved. The codes documented in this report are preliminary and upon supervisor grower review may be revised to meet current compliance requirements. Sonu Bueno MD 07/26/2024 8:39:23 AM This report has been signed electronically. Number of Addenda: 0 Note Initiated On: 07/26/2024 7:55 AM 07/26/24 0839 Date Sonu Bueno MD Cosigner Signature: Date (if indicated) CC: Dr. Lilian Byrd MD; Dr. Sonu Bueno MD Date Dictated: 07/26/24 0755 Date Transcribed: Allied Health Teacher: СЕРГЕЙ Vargas [facility] MR/POSTOP.NEHEMIAS 07-26-2024 MR/POSTOP.[facility] Medical Records Department [address] [place] [address] Anesthesia Postop Eval I 07/26/2439 MR#: [id number] Acct: [id number] Name: ESTRELLA MC Rep #: [id number] : 1980 43 From: Fredo Azul PCP: Dr. Lilian Byrd MD Status:REG SDC Y Race: AA Location: [place] [address] Anesthesia: Postop Eval I Current Vital Signs Temperature: 97.5 F Pulse Rate: 88 Blood Pressure: 112/79 Respiratory Rate: 16 Pulse Ox: 100 Oxygen Delivery Method: Room Air Assessment Airway patent: Yes Spontaneous unlabored respirations: Yes Mental status: Awake and Calm nausea: No Vomiting: No Anesthesia Complication: No Fluid Hydration Crystalloid volume administer (ml): 50 Total IV fluid infused: 50 Progress Note Anesthesia document: Postop Eval 1 completed: Yes 07/26/24840 Date Fredo Corneliuser Signature: Date CC: Signed Normal [facility] MR/AENUDGMC7lf 07-26-2024 MR/POSTOPAN2 [facility] Medical Records Department [address] [place] [address] Anesthesia Postop Eval II 07/26/24 105 MR#: [id number] Acct: [id number] Name: ESTRELLA MC Rep #: [id number] : 1980 43 From: Fredo Azul PCP: Dr. Lilian Byrd MD Status:[facility] Y Race: AA Location: EN Anesthesia Postop Eval I Sum Postop Eval Completion status Anesthesia document: Postop Eval 1 completed: Yes Anesthesia Postop Eval I Summary Anesthesia Postop Eval I Summary: Anesthesia Postop Eval I: Assessment Summary Airway patent Yes 07/26/24 08:41 [email or web address] Spontaneous unlabored Yes 07/26/24 08:41 [email or web address] respirations Mental status Awake,Calm 07/26/24 08:41 [email or web address] nausea No 07/26/24 08:41 [email or web address] Vomiting No 07/26/24 08:41 [email or web address] Anesthesia Postop Eval I: Fluid Summary Crystalloid volume administer 50 07/26/24 08:41 [email or web address] (ml) Colloids volume administered ( ml) Blood Product volume administered (ml) Total IV fluid infused 50 07/26/24 08:41 [email or web address] Anesthesia Postop Eval I: Summary Notes Anesthesia Complication No 07/26/24 08:41 [email or web address] Anesthesia Complication Comment: Post-operative progress note Anesthesia: Postop Eval II Evaluation Mental status: Awake and Calm Pain Level: 0 nausea: No Vomiting: No Complications Anesthesia Complication: No 07/26/24 105 Date Fredo Beebeigner Signature: Date CC: Signed Normal [facility] Surgery Specimen Level Alberto 07-26-2024 Surgery Specimen Level IV Patient Age/Sex Location Account Attending Physician ESTRELLA MC 43/F EN [id number] Dr. Sonu Bueno MD Specimen: [id number] Received: 07/26/24 Status: LINDADa Poe Num: [id number] Spec Type: COLON BX Subm Dr: Dr. Sonu Bueno MD HEADER OPERATION: Colonoscopy PRE-OP DIAGNOSIS: Constipation TISSUE SUBMITTED: Sigmoid polyp biopsy MICROSCOPIC DIAGNOSIS Sigmoid polyp, biopsy: Hyperplastic polyp. SJ.mr 07/27/2024 MICROSCOPIC DESCRIPTION Slides are reviewed. GROSS DESCRIPTION Received in fixative is one container labeled with the patient's name and designated Sigmoid polyp biopsy. The specimen consists of two irregular fragments of light hughes soft tissue that in aggregate measure 0.7 x 0.3 x 0.2 cm. The specimen is totally submitted in one cassette. . 07/26/2024 TC:1 CPT:96239 Patient Age/Sex Location Account Attending Physician ESTRELLA MC 43/F EN [id number] Dr. Sonu Bueno MD Signed (signature on file) Dr. Nick Flores MD 07/27/24 1213 Normal [facility] Comment on above: Performed By: #### P SUIV ####[facility] [id number] [facility] [address] [place], [place], [address] MR/PAT.ANEon 06-24-2024 MR/PAT.[facility] Medical Records Department [address] [place] [address] PAT - Anesthesia 06/24/24 1034 MR#: [id number] Acct: [id number] Name: ESTRELLA MC Rep #: [id number] : 1980 43 From: Joe Hernandez MD PCP: Dr. 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 When Was Last Pacemaker Check QUESTION #4 FULL TEXT: You/Your Family Experience fever (hyperthermia) with Anesthesia Last Oral Intake Last Oral intake: Last Oral Intake NPO since Meds taken in AM with sips of water? Meds patient instructed to take am of surgery PONV PONV - regenerator operator: PONV - regenerator operator Female Yes 06/24/24 09:48 HX of Motion Sickness No 06/24/24 09:48 HX of N/V After Surgery No 06/24/24 09:48 Non-Smoker Yes 06/24/24 09:48 Duration of Surgery greater No 06/24/24 09:48 than 60 minutes Number of Risk Factors 2 06/24/24 09:48 PONV Score Moderate Risk 06/24/24 09:48 Height Weight Height Weight: Anesthesia: Height Weight Height 5 ft 11 in 05/30/24 09:50 Respiratory Assessment Respiratory Assessment - regenerator operator: Respiratory Tract Infection Hx - regenerator operator Hx Respiratory Tract Infection No 06/24/24 09:48 STOP Sleep Apnea STOP Sleep Apnea - regenerator operator: STOP Sleep Apnea - regenerator operator Hx Hypertension No 06/24/24 09:48 Hx Sleep Apnea No 06/24/24 09:48 CPAP BIPAP Do you snore loudly (louder No 06/24/24 09:48 than talking or can be heard Do you often feel tired/ No 06/24/24 09:48 fatigued/ sleepy during daytime? Has anyone observed you stop No 06/24/24 09:48 breathing during sleep? STOP Results Negative 06/24/24 09:48 QUESTION #5 FULL TEXT : Do you snore loudly (louder than talking or can be heard through closed doors)? Tobacco Use History Tobacco Use History - regenerator operator: Tobacco Use History - regenerator operator Tobacco Use Smoking Status Current every day smoker 06/24/24 09:48 Hx Tobacco Use Yes 06/24/24 09:48 Years Smoking Packs Smoked per Day Smoking Cessation Date was within the last 15 years Hx Smoking Cessation Date Hx Smoking Cessation Counseling Hematologic Medial History Hematologic Hx - regenerator operator: Hematologic Medical Hx - gang investigator Hx of Blood Transfusion No 06/24/24 09:48 Hx of Transfusion in last 3 No 06/24/24 09:48 Months Date of Last Transfusion (if within last 3 months) Ever experience any problems No 06/24/24 09:48 with transfusion(s)? Specify any problems Hx of Preganancy in last 3 No 06/24/24 09:48 Months Nurse Filling Out Transfusion DSCHRIBER 06/24/24 09:48 Questions: Date: 06/24/24 06/24/24 09:48 Time: 09:50 06/24/24 09:48 Patient unable to answer at this time (ie. confused, unrespo /Reproducti on History /Reproducti ve History - regenerator operator: /Reproducti ve Hx- regenerator operator Hx Now No 06/24/24 09:48 Gestational Age (in weeks): EDC: Hx Hx Para Hx Section SAB No 06/24/24 09:48 [facility] Medical History (Updated 06/24/24 @ 09:59 by Christy Castrejon) Depression Wears glasses Foot abrasion Diabetes Arthritis Dietary restriction History of diverticulitis Smoker Shortness of breath on exertion History of pain when walking Acid reflux Diarrhea Constipation Home Medications ???Medication ???Instructions ???Recorded ???Last Taken ???Type cyclobenzaprine 10 mg tablet 10 mg PO TID PRN Muscle Spasm #15 05/04/22 Unknown Rx TABLETS metformin 500 mg tablet 500 mg PO BID #30 tabs 05/04/22 Unknown Rx dulaglutide 3 mg/0.5 mL 3 mg subcut WE 05/30/24 06/22/24 History subcutaneous pen injector (Trulicity) esomeprazole magnesium 20 mg 20 mg PO DAILY 06/24/24 Unknown History capsule,delayed release fluoxetine 10 mg capsule 10 mg PO DAILY 06/24/24 Unknown History latanoprost 0.005 % eye drops 1 drp ophthalmic (eye) QHS 06/24/24 Unknown History lisinopril 2.5 mg tablet 2.5 mg PO DAILY 06/24/24 Unknown History Allergy/A (more content not included)... Normal [facility] SCRN MAMM (CAD)W/KUSHAL BILATo n 06-14-2024 SCRN MAMM (CAD)W/KUSHAL BILAT [facility] Imaging Services [address] [place], [place] [address] SCRN MAMM (CAD)W/KUSHAL BILAT MR#: [id number] Acct: [id number] Name: CARLOSBARBARADELMER Sunshine Rep #: [id number] : 1980 F 43 From: Tyrone santos MD PCP: Dr. Lilian Byrd MD Status: REG CL Study: SCRN MAMM (CAD)W/KUSHAL BILAT Date of Exam: 12/30 Exam# [id number] Ordering Dr: Lilian Byrd MD [id number] MAMMOGRAPHY - BILATERAL SCREENING REASON FOR EXAM: Female, 43 years old. Routine annual screening examination. PERTINENT HISTORY: Non-contributory. TECHNIQUE: Digital bilateral breast kushal (3D mammographic acquisition) in the CC and MLO projections. 2-D mediolateral oblique (MLO) and craniocaudad (CC) views of both breasts were obtained. CAD: Full Field Digital Mammography with Computer Added Detection was performed. COMPARISON: Comparison is made with prior outside examination dated January 11, 2021. FINDINGS: Breast Composition: There are scattered areas of fibroglandular density. There are no dominant masses or suspicious calcifications. No other significant abnormalities are identified. There has been no significant change since the prior study. BI/SCRN MAMM (CAD)W/KUSHAL BILAT IMPRESSION: Stable bilateral screening mammogram. Yearly follow-up mammogram recommended. (A) ASSESSMENT CATEGORY: BIRADS Category 1: Negative. A letter regarding these results will be sent to the patient by the facility within 30 days. Approximately 10% of breast cancers are not detected by mammography. A normal mammogram should not delay biopsy of a clinically suspicious abnormality. [id number] Electronically Signed: Tyrone Rodriguez MD at 11:07 EST Reading Location ID and State: [facility] / [place] , Service support , CC: Dr. Lilian Byrd MD Allied Health Teacher: Signed Normal [facility] Visit Reporton 05-30 Surgery Visit Report [facility] [address] [place] [address]. [address] [place] [address] OFFICE VISIT Date of Service: 05/30/24 MR#: [id number] Acct: [id number] Name: ESTRELLA MC Rep #: [id number] : 1980 Provider: Dr. Sonu baker MD Age/Sex: 43/F Location: [facility] Status: Signed Intake Vital Signs 06/19/22 16:51 05/30/24 09:50 Height 5 ft 10 in 5 ft 11 in Weight: 241 lb 6 oz BMI 33.6 BP 136/84 H Blood Pressure Location Rt brachial Position Sitting Respiration 18 Pulse 95 Pulse Source Monitor Temp 97.2 F L Temp Source Temporal Pulse Oximetry (%) 99 Oxygen Delivery Method room air Intake Visit Reasons: CHANGE OF BOWEL HABITS Chief Complaint: change of bowel habits Is patient in pain?: No Allergies acetaminophen (From Vicodin) Allergy (Verified 05/30/24 09:52) Rash hydrocodone bitartrate (From Vicodin) Allergy (Verified 05/30/24 09:52) Rash Medications ???Medication ???Instructions ???Recorded ???Confirmed ???Type cyclobenzaprine 10 mg tablet 10 mg PO TID PRN Muscle Spasm #15 05/04/22 05/30/24 Rx TABLETS metformin 500 mg tablet 500 mg PO BID #30 tabs 05/04/22 05/30/24 Rx dulaglutide 3 mg/0.5 mL mg subcut 05/30/24 05/30/24 History subcutaneous pen injector (Trulicity) PFSH Medical History Acid reflux Diarrhea Constipation Social History Smoking Status: Never smoker alcohol intake: never substance use type: does not use HPI HPI HPI: The patient is a 43-year-old female who is being seen today to discuss setting up a colonoscopy. She was referred to us by her PCP. She does have a family history of colon cancer but this was in a second cousin. She does state that she does have some alternating constipation with diarrhea. She denies any blood in her stools. She is on diabetic medication as well as Trulicity. She presents today to establish screening colonoscopy as she wishes to be proactive with her health and also to investigate the change in bowel habits which is a fairly new change for her. ROS General General: Yes weight change and fatigue; No appetite, colon cancer, breast cancer or weakness HEENT HEENT: Yes difficulty swallowing; No eye injury, eye surgery, swollen glands or hoarseness Endo Endocrine: No thyroid disease, diabetes mellitus, thyroid cancer, Hair loss, heat intolerance or cold intolerance Skin Skin: No rash or changing moles Musc Musculoskeletal: No back problems, arthritis, rheumatoid arthritis, gout or joint pain Cardio Cardiovascular: No murmur, pacemaker, heart disease, atrial fibrillation, high blood pressure, heart attack, heart stent, palpitations, shortness of breat with exertion or chest pain Psych Psychiatric: Yes depression and anxiety; No hearing voices Resp Respiratory: No shortness of breath, No sleep apnea, No cough, No COPD, No asthma, No emphysema and No wheezing Gastro Gastrointestinal: Yes abdominal pain, No nausea or vomiting, Yes diarrhea, Yes constipation, No blood in stool, Yes acid reflux, No hemorrhoids, No ulcers, No gallbladder problem and No bl ack,tarry stools Gigi Hematologic: No blood thinners, No blood disorders, No bleeding, No anemia and No blood clots Neuro Neurologic: No numbness, No tingling and No weakness Exam Const General: cooperative, healthy appearing and no acute distress HENMT Head: normal to inspection Eyes General: appearance normal, both eyes and all related structures Neck Neck: normal visual inspection GI Inspection: normal to inspection Assessment and Plan Assessment and Plan (1) Constipation: Status: Acute Plan: The patient is a 43-year-old female who presents today for colonoscopy discussion. She does have a family history of colon cancer in a second cousin. She is also noticed some changes in her bowel movements most notably alternating constipation and diarrhea. We discussed the details of the planned procedure including risk benefits and alternatives and she wishes to proceed. This will be scheduled in a timely manner. Coding Level of Care Code Off vis,new,level 3 Diagnoses Constipation K59.00 05/30/24 1117 Date Sonu Bueno MD Cosigner Signature: Date (if applicable) CC: Dr. Lilian Byrd MD Normal [facility] C-Peptideon 05-23-2024 C PEPTIDE 2.6 ng/mL Normal 1.1-4.4 [facility] Comment on above: Result Comment: C-Pe ptide reference interval is for fasting patients. Performed By: #### L 100.0100, L501.9985, L502.0250, L3100.7750, L3300.3500, L500.4100, L500.4050 ####[facility] [address] [place], [place], [id number] Insulin Levelon 05-23-2024 INSULIN,FASTING 9.5 uIU/mL Normal 2.6-24.9 [facility] Comment on above: Result Comment: Perf ormed at: [facility] [address] [id number] Section Chief: Forrest Ashby PhD, Phone: [phone] Performed By: #### L 100.0100, L501.9985, L502.0250, L3100.7750, L3300.3500, L500.4100, L500.4050 ####[facility] [address], [address] CBC W/Diff, Automatedon 05-08 Absolute Lymph 2.90 X10 3/uL Normal 0.83-4.51 [facility] Comment on above: Performed By: #### L 100.0100, L501.9985, L502.0250, L3100.7750, L3300.3500, L500.4100, L500.4050 #### [facility] [address], [address] Absolute Neut 3.6 X10 3/uL Normal 2.0-7.7 [facility] Comment on above: Performed By: #### L 100.0100, L501.9985, L502.0250, L3100.7750, L3300.3500, L500.4100, L500.4050 #### [facility] [address], [address] Basophils/100 WBC (Bld) 0.4 % Normal 0-[address] [facility] Comment on above: Performed By: #### L 100.0100, L501.9985, L502.0250, L3100.7750, L3300.3500, L500.4100, L500.4050 #### [facility] [address], [address] Eosinophils/100 WBC (Bld) 0.6 % Normal 0-5 [facility] Comment on above: Performed By: #### L 100.0100, L501.9985, L502.0250, L3100.7750, L3300.3500, L500.4100, L500.4050 #### [facility] [address], [address] Erythrocyte distribution width (RBC) [Ratio] 14.6 % Normal 11.6-14.6 [facility] Comment on above: Performed By: #### L 100.0100, L501.9985, L502.0250, L3100.7750, L3300.3500, L500.4100, L500.4050 #### [facility] [address], [address] Hematocrit (Bld) [Volume fraction] 41.7 % Normal 37-47 [facility] Comment on above: Performed By: #### L 100.0100, L501.9985, L502.0250, L3100.7750, L3300.3500, L500.4100, L500.4050 #### [facility] [address], [address] Hemoglobin (Bld) [Mass/Vol] 13.0 g/dL Normal 12.0-15.0 [facility] Comment on above: Performed By: #### L 100.0100, L501.9985, L502.0250, L3100.7750, L3300.3500, L500.4100, L500.4050 #### [facility] [address], [address] IG% 0.400 Normal 0.0-0.9 [facility] Comment on above: Result Comment: IG% - Immature Granulocytes (promyelocytes, myelocytes and metamyelocytes) > 1% indicates that a LEFT SHIFT is Present. Performed By: #### L 100.0100, L501.9985, L502.0250, L3100.7750, L3300.3500, L500.4100, L500.4050 #### [facility] [address] [facility] [place], [address] Lymphocytes/100 WBC (Bld) 41.0 % Normal 19-41 [facility] Comment on above: Performed By: #### L 100.0100, L501.9985, L502.0250, L3100.7750, L3300.3500, L500.4100, L500.4050 #### [facility] [address], [address] MCH (RBC) [Entitic mass] 25.6 pg Low 27.0-32.0 [facility] Comment on above: Performed By: #### L 100.0100, L501.9985, L502.0250, L3100.7750, L3300.3500, L500.4100, L500.4050 #### [facility] [address], [address] MCHC (RBC) [Mass/Vol] 31.2 g/dL Low 32-36 [facility] Comment on above: Performed By: #### L 100.0100, L501.9985, L502.0250, L3100.7750, L3300.3500, L500.4100, L500.4050 #### [facility] [address] [place], [address] MCV (RBC) [Entitic vol] 82.2 fL Normal 81-[address] [facility] Comment on above: Performed By: #### L 100.0100, L501.9985, L502.0250, L3100.7750, L3300.3500, L500.4100, L500.4050 #### [facility] [address], [address] Monocytes/100 WBC (Bld) 6.4 % Normal 0-[address] [facility] Comment on above: Performed By: #### L 100.0100, L501.9985, L502.0250, L3100.7750, L3300.3500, L500.4100, L500.4050 #### [facility] [address] [place], [address] Neutrophils/100 WBC (Bld) 51.2 % Normal 47-70 [facility] Comment on above: Performed By: #### L 100.0100, L501.9985, L502.0250, L3100.7750, L3300.3500, L500.4100, L500.4050 #### [facility] [address] [place], [address] Nucleated RBC (Bld) [#/Vol] 0 10*3/uL Normal 0-5 [facility] Comment on above: Performed By: #### L 100.0100, L501.9985, L502.0250, L3100.7750, L3300.3500, L500.4100, L500.4050 #### [facility] [address], [address] Platelet mean volume (Bld) [Entitic vol] 10.8 fL Normal 6.2-12.0 [facility] Comment on above: Performed By: #### L 100.0100, L501.9985, L502.0250, L3100.7750, L3300.3500, L500.4100, L500.4050 #### [facility] [address], [address] Platelets (Bld) [#/Vol] 339 10*3/uL Normal 150-450 [facility] Comment on above: Performed By: #### L 100.0100, L501.9985, L502.0250, L3100.7750, L3300.3500, L500.4100, L500.4050 #### [facility] [address], [address] RBC (Bld) [#/Vol] 5.07 10*6/uL Normal 4.2-5.4 [facility] Comment on above: Performed By: #### L 100.0100, L501.9985, L502.0250, L3100.7750, L3300.3500, L500.4100, L500.4050 #### [facility] [address], [address] RDW SD 43.3 fl Normal 35.1-43.9 [facility] Comment on above: Performed By: #### L 100.0100, L501.9985, L502.0250, L3100.7750, L3300.3500, L500.4100, L500.4050 #### [facility] [address], [address] WBC (Bld) [#/Vol] 7.1 10*3/uL Normal 4.4-11.0 [facility] Comment on above: Performed By: #### L 100.0100, L501.9985, L502.0250, L3100.7750, L3300.3500, L500.4100, L500.4050 #### [facility] [address], [address] Comprehensive Metabolic Prof [facility] 05-19-2024 Albumin [Mass/Vol] 3.7 g/dL Normal 3.2-5.0 [facility] Comment on above: Performed By: #### L 100.0100, L501.9985, L502.0250, L3100.7750, L3300.3500, L500.4100, L500.4050 #### [facility] [address], [address] Albumin/Globulin [Mass ratio] 1.0 {ratio} Normal 0.9-2.4 [facility] Comment on above: Performed By: #### L 100.0100, L501.9985, L502.0250, L3100.7750, L3300.3500, L500.4100, L500.4050 #### [facility] [address], [address] ALK P 66 U/L Normal 45-117 [facility] Comment on above: Performed By: #### L 100.0100, L501.9985, L502.0250, L3100.7750, L3300.3500, L500.4100, L500.4050 #### [facility] [address], [address] ALT [Catalytic activity/Vol] 20 U/L Normal 13-56 [facility] Comment on above: Performed By: #### L 100.0100, L501.9985, L502.0250, L3100.7750, L3300.3500, L500.4100, L500.4050 #### [facility] [address], [address] AST [Catalytic activity/Vol] 18 U/L Normal 15-37 [facility] Comment on above: Performed By: #### L 100.0100, L501.9985, L502.0250, L3100.7750, L3300.3500, L500.4100, L500.4050 #### [facility] [address], [address] Bilirubin [Mass/Vol] 0.40 mg/dL Normal 0.20-1.00 [facility] Comment on above: Result Comment: For patients on eltrombopag therapy, use of Dimension Bryan TBIL is not recommended. Performed By: #### L 100.0100, L501.9985, L502.0250, L3100.7750, L3300.3500, L500.4100, L500.4050 #### [facility] [address], [address] BUN/CRE 7.9 RATIO Low 10-20 [facility] Comment on above: Performed By: #### L 100.0100, L501.9985, L502.0250, L3100.7750, L3300.3500, L500.4100, L500.4050 #### [facility] [address], [address] CA,Total 9.6 mg/dL Normal 8.5-10.1 [facility] Comment on above: Performed By: #### L 100.0100, L501.9985, L502.0250, L3100.7750, L3300.3500, L500.4100, L500.4050 #### [facility] [address], [address] Chloride [Moles/Vol] 105 mmol/L Normal 98-107 [facility] Comment on above: Performed By: #### L 100.0100, L501.9985, L502.0250, L3100.7750, L3300.3500, L500.4100, L500.4050 #### [facility] [address], [address] CO2 [Moles/Vol] 27.0 mmol/L Normal 21.0-32.0 [facility] Comment on above: Performed By: #### L 100.0100, L501.9985, L502.0250, L3100.7750, L3300.3500, L500.4100, L500.4050 #### [facility] [address] [place], [place], [id number] Creatinine [Mass/Vol] 0.89 mg/dL Normal 0.55-1.02 [facility] Comment on above: Result Comment: The validity of the calculated GFR GFRAA in patients over 70 years has not been determined. Clinical correlation is essential. Performed By: #### L 100.0100, L501.9985, L502.0250, L3100.7750, L3300.3500, L500.4100, L500.4050 #### [facility] [address] [place], [place], [id number] (433) EST GFR - AA 88 mL/min Normal >60 [facility] Comment on above: Result Comment: Afri can Citizen Of [place] GFR Calc Performed By: #### L 100.0100, L501.9985, L502.0250, L3100.7750, L3300.3500, L500.4100, L500.4050 #### [facility] [address] [place], [place], [id number] GAP 4 Low 5-15 [facility] Comment on above: Performed By: #### L 100.0100, L501.9985, L502.0250, L3100.7750, L3300.3500, L500.4100, L500.4050 #### [facility] [address] [place], [place], [id number] (704) GFR/1.73 sq M.predicted among non-blacks MDRD (S/P/Bld) [Vol rate/Area] 73 mL/min/{1.73_m2} Normal >60 [facility] Comment on above: Result Comment: Non- GFR Calc Performed By: #### L 100.0100, L501.9985, L502.0250, L3100.7750, L3300.3500, L500.4100, L500.4050 #### [facility] [address], [address] Globulin (S) [Mass/Vol] 3.8 g/dL Normal 2.2-4.[address] [facility] Comment on above: Performed By: #### L 100.0100, L501.9985, L502.0250, L3100.7750, L3300.3500, L500.4100, L500.4050 #### [facility] [address], [address] Glucose [Mass/Vol] 287 mg/dL High 74-106 [facility] Comment on above: Result Comment: Gluc ose result greater than or equal to 200 mg/dL suggests DIABETES MELLITUS per A.D.A. criteria. Performed By: #### L 100.0100, L501.9985, L502.0250, L3100.7750, L3300.3500, L500.4100, L500.4050 #### [facility] [address], [address] Potassium [Moles/Vol] 4.0 mmol/L Normal 3.5-5.1 [facility] Comment on above: Performed By: #### L 100.0100, L501.9985, L502.0250, L3100.7750, L3300.3500, L500.4100, L500.4050 #### [facility] [address], [address] Sodium [Moles/Vol] 136 mmol/L Normal 136-145 [facility] Comment on above: Performed By: #### L 100.0100, L501.9985, L502.0250, L3100.7750, L3300.3500, L500.4100, L500.4050 #### [facility] [address], [address] T PROT 7.5 g/dL Normal 6.4-8.2 [facility] Comment on above: Performed By: #### L 100.0100, L501.9985, L502.0250, L3100.7750, L3300.3500, L500.4100, L500.4050 #### [facility] [address], [address] Urea nitrogen [Mass/Vol] 7 mg/dL Normal 7-18 [facility] Comment on above: Performed By: #### L 100.0100, L501.9985, L502.0250, L3100.7750, L3300.3500, L500.4100, L500.4050 #### [facility] [address], [address] Hemoglobin A1con 05-19-2024 HbA1c (Bld) [Mass fraction] 13.6 % High 3.8-5.6 [facility] Comment on above: Result Comment: Norm al < 5.7 % Prediabetic 5.7 - 6.4 % Diabetic >or= 6.5 % Please note range changes. Performed By: #### L 100.0100, L501.9985, L502.0250, L3100.7750, L3300.3500, L500.4100, L500.4050 #### [facility] [address], [address] Lipid Profileon 05-19-2024 Cholesterol [Mass/Vol] 177 mg/dL Normal 200 [facility] Comment on above: Result Comment: <200 mg/dL Desirable 200-240 mg/dL Borderline >240 mg/dL High Risk Performed By: #### L 100.0100, L501.9985, L502.0250, L3100.7750, L3300.3500, L500.4100, L500.4050 #### [facility] [address], [address] Cholesterol in HDL [Mass/Vol] 68 mg/dL Normal [facility] Comment on above: Result Comment: The drugs N-Acetylcysteine and Metamizole may falsely depress this assay. Reference Range HDL <40 mg/dL Low HDL Cholesterol HDL >or= 60 mg/dL High HDL Cholesterol Performed By: #### L 100.0100, L501.9985, L502.0250, L3100.7750, L3300.3500, L500.4100, L500.4050 #### [facility] [address], [address] Cholesterol in LDL [Mass/Vol] 94 mg/dL Normal 0-130 [facility] Comment on above: Performed By: #### L 100.0100, L501.9985, L502.0250, L3100.7750, L3300.3500, L500.4100, L500.4050 #### [facility] [address], [address] Cholesterol in VLDL [Mass/Vol] 15 mg/dL Normal 5-40 [facility] Comment on above: Performed By: #### L 100.0100, L501.9985, L502.0250, L3100.7750, L3300.3500, L500.4100, L500.4050 #### [facility] [address], [address] Triglyceride [Mass/Vol] 76 mg/dL Normal [facility] Comment on above: Result Comment: The drugs N-Acetylcysteine and Metamizole may falsely depress this assay. Serum Triglycerides Reference Interval Normal <150 mg/dL Borderline high 150 - 199 mg/dL High 200 - 499 mg/dL Very High > or = 500 mg/dL Performed By: #### L 100.0100, L501.9985, L502.0250, L3100.7750, L3300.3500, L500.4100, L500.4050 #### [facility] [address], [address] Microalb:Creat Ratio,Random URon 05-19-2024 Creatinine [Mass/Vol] 169.00 mg/dL Normal NO RAN GE EST. [facility] Comment on above: Performed By: #### L 100.0100, L501.9985, L502.0250, L3100.7750, L3300.3500, L500.4100, L500.4050 #### [facility] [address], [address] MALB:CRE 12.3 mg/g CRE Normal <30 mg/g CRE [facility] Comment on above: Performed By: #### L 100.0100, L501.9985, L502.0250, L3100.7750, L3300.3500, L500.4100, L500.4050 #### [facility] [address], [address] MICROALBUMIN,UR 20.8 mg/L Normal NO RANGE EST. [facility] Comment on above: Performed By: #### L 100.0100, L501.9985, L502.0250, L3100.7750, L3300.3500, L500.4100, L500.4050 #### [facility] [address] [place], [place], [id number] Cervical or vaginal specimen microscopic examination by liquid based cytology (reportOrdered By: Lilian Byrd on 09-11-2023 Cytology report Cyto stain.thin prep Doc (Cvx/Vag) Comment . [facility] Comment on above: Criteria not met, HP V Genotype not performed.Performed at: [address] [id number] Director: Tara Garcia MD, Phone: [phone] at: [address] [id number] Director: Dustin Skelton MD, Phone: [phone] at: [address] [id number] Director: Tara Garcia MD, Phone: [phone] Cervical or vagninal specime n microscopic examination by cytology stain (reported asOrdered By: Lilian Byrd on 09-11-2023 Cytology report Cyto stain Doc (Cvx/Vag) Comment . [facility] Comment on above: The Pap smear is a s creening test designed to aid in thedetection of premalignant and malignant conditions of theuterine cervix. It is not a diagnostic procedure andshould not be used as the sole means of detecting cervicalcancer. Both false-positive and false-negative reports dooccur. Laboratory - CytologyOrdered By: Lilian Byrd on 09-11-2023 Rn Care Transition Cyto stain Nom (Cvx/Vag) [ID] Comment . [facility] Comment on above: Sivakumar Guzman, Cytote chnologist (ASCP) Laboratory - Miscellaneous t estsOrdered By: Lilian Byrd on 09-11-2023 Service comment (Unsp spec) [Interp] . . [facility] No Panel InformationOrdered By: Lilian Byrd on 09-11-2023 Pap Smear Additional Comments 30-65 . [facility] Thin prep Papanicolaou smear with manual screeningOrdered By: Lilian Byrd on 09-11-2023 Thin prep Papanicolaou smear with manual screening Comment . [facility] Comment on above: NEGATIVE FOR INTRAEP ITHELIAL LESION OR MALIGNANCY. This liquid based Th inPrep(R) pap test was screened withthe use of an image guided system. LABORATORYOrdered By: SYSTEM SYSTEM on 01-22-2023 Albumin BCP dye [Mass/Vol] 3.8 G/dL Invalid Interpretation Code 3.5 - 5.0 G/dL AO ADM SS Albumin/Globulin [Mass ratio] 1.2 {ratio} Invalid Interpretation Code 1.1 - 2.5 ratio AO ADM SS ALP [Catalytic activity/Vol] 59 U/L Invalid Interpretation Code 40 - 135 U/L AO ADM SS ALT With P-5'-P [Catalytic activity/Vol] 22 U/L Invalid Interpretation Code 14 - 59 U/L AO ADM SS AST With P-5'-P [Catalytic activity/Vol] 15 U/L Invalid Interpretation Code 10 - 40 U/L AO ADM SS Basophil, Absolute 0.1 103/mcL Invalid Interpretation Code 0.0 - 0.2 10^3/mcL AO Workflow SS Basophils/100 WBC (Bld) 0.7 % Invalid Interpretation Code 0.0 - 2.5 % AO Workflow SS Bilirubin [Mass/Vol] 0.2 mg/dL Invalid Interpretation Code 0.2 - 1.0 mg/dL AO ADM SS Comment on above: Interpretive Data: U se of this assay is not recommended for patients undergoing treatment with eltrombopag due to the potential for falsely elevated results. Calcium [Mass/Vol] 8.9 mg/dL Invalid Interpretation Code 8.4 - 10.2 mg/dL AO ADM SS Chloride [Moles/Vol] 102 mmol/L Invalid Interpretation Code 98 - 107 mmol/L AO ADM SS CO2 [Moles/Vol] 26 mmol/L Invalid Interpretation Code 22 - 29 mmol/L AO ADM SS Creatinine [Mass/Vol] 1.36 mg/dL Invalid Interpretation Code 0.55 - 1.02 mg/dL AO ADM SS Electrolyte Balance 11.0 mEq/L Invalid Interpretation Code 4.0 - 15.0 mEq/L AO ADM SS Eosinophil, Absolute 0.2 103/mcL Invalid Interpretation Code 0.0 - 0.4 10^3/mcL AO Workflow SS Eosinophils/100 WBC (Bld) 1.8 % Invalid Interpretation Code 0.0 - 7.0 % AO Workflow SS Erythrocyte distribution width (RBC) [Ratio] 14.2 % Invalid Interpretation Code 11.5 - 14.5 % AO Workflow SS GFR/1.73 sq M.predicted among blacks MDRD (S/P/Bld) [Vol rate/Area] 51 ml/min/1.73sqm Invalid Interpretation Code AO Chemistry S Comment on above: Interpretive Data: GFR Population mean for , Non- Americans Ages 20-29 = 116 mL/min/1.73 sq.m. Ages 30-39 = 107 mL/min/1.73 sq.m. Ages 40-49 = 99 mL/min/1.73 sq.m. Ages 50-59 = 93 mL/min/1.73 sq.m. Ages 60-69 = 85 mL/min/1.73 sq.m. Ages 70+ = 75 mL/min/1.73 sq.m. Chronic Kidney Disease: Less than 60 mL/min/1.73 square meters End Stage Renal Disease: Less than 15 mL/min/1.73 square meters GFR/1.73 sq M.predicted among non-blacks MDRD (S/P/Bld) [Vol rate/Area] 42 ml/min/1.73sqm Invalid Interpretation Code AO Chemistry S Comment on above: Interpretive Data: GFR Population mean for , Non- Americans Ages 20-29 = 116 mL/min/1.73 sq.m. Ages 30-39 = 107 mL/min/1.73 sq.m. Ages 40-49 = 99 mL/min/1.73 sq.m. Ages 50-59 = 93 mL/min/1.73 sq.m. Ages 60-69 = 85 mL/min/1.73 sq.m. Ages 70+ = 75 mL/min/1.73 sq.m. Chronic Kidney Disease: Less than 60 mL/min/1.73 square meters End Stage Renal Disease: Less than 15 mL/min/1.73 square meters Globulin 3.3 G/dL Invalid Interpretation Code AO ADM SS Glucose [Mass/Vol] 140 mg/dL Invalid Interpretation Code 70 - 105 mg/dL AO ADM SS Hematocrit (Bld) [Volume fraction] 35.0 % Invalid Interpretation Code 37.0 - 47.0 % AO Workflow SS Hemoglobin (Bld) [Mass/Vol] 11.3 G/dL Invalid Interpretation Code 12.0 - 16.0 G/dL AO Workflow SS Lipase [Catalytic activity/Vol] 41 U/L Invalid Interpretation Code 16 - 77 U/L AO ADM SS Lymphocyte, Absolute 4.1 103/mcL Invalid Interpretation Code 0.8 - 3.9 10^3/mcL AO Workflow SS Lymphocytes/100 WBC (Bld) 34.7 % Invalid Interpretation Code 10.0 - 50.0 % AO Workflow SS MCH (RBC) [Entitic mass] 25.7 pg Invalid Interpretation Code 27.0 - 31.2 pg AO Workflow SS MCHC 32.3 G/dL Invalid Interpretation Code 33.0 - 37.0 G/dL AO Workflow SS MCV (RBC) [Entitic vol] 79.4 fL Invalid Interpretation Code 80.0 - 94.0 fL AO Workflow SS Monocyte distribution width Auto (Bld) [Entitic vol] 16.92 1 Invalid Interpretation Code 0.00 - 20.00 AO Workflow SS Comment on above: Result Comment: For ED adult patients suspected of sepsis, MDW<=20.0 does not rule out sepsis or risk of sepsis Monocyte, Absolute 0.8 103/mcL Invalid Interpretation Code 0.2 - 1.0 10^3/mcL AO Workflow SS Monocytes/100 WBC (Bld) 6.5 % Invalid Interpretation Code 1.7 - 13.0 % AO Workflow SS Neutrophil, Absolute 6.6 103/mcL Invalid Interpretation Code 2.9 - 6.2 10^3/mcL AO Workflow SS Neutrophils/100 WBC (Bld) 56.3 % Invalid Interpretation Code 37.0 - 80.0 % AO Workflow SS Platelet mean volume (Bld) [Entitic vol] 7.1 fL Invalid Interpretation Code 7.4 - 10.4 fL AO Workflow SS Platelets (Bld) [#/Vol] 359 103/mcL Invalid Interpretation Code 130 - 400 10^3/mcL AO Workflow SS Potassium [Moles/Vol] 3.9 mmol/L Invalid Interpretation Code 3.5 - 5.1 mmol/L AO ADM SS Protein [Mass/Vol] 7.1 G/dL Invalid Interpretation Code 6.4 - 8.2 G/dL AO ADM SS RBC (Bld) [#/Vol] 4.41 106/mcL Invalid Interpretation Code 4.20 - 5.40 10^6/mcL AO Workflow SS Sodium [Moles/Vol] 139 mmol/L Invalid Interpretation Code 136 - 145 mmol/L AO ADM SS Urea nitrogen [Mass/Vol] 10 mg/dL Invalid Interpretation Code 7 - 18 mg/dL AO ADM SS Urea nitrogen/Creatinine [Mass ratio] 7 ratio Invalid Interpretation Code 7 - 27 ratio AO ADM SS WBC (Bld) [#/Vol] 11.7 103/mcL Invalid Interpretation Code 4.6 - 10.8 10^3/mcL AO Workflow SS LABORATORYOrdered By: Adina Lindsey on 01-22-2023 Appearance (U) Slightly Cloudy *ABN* (01/22/23 7:29 PM) Invalid Interpretation Code Clear AO Auto Urine SS Bacteria LM.HPF (Urine sed) [#/Area] Trace /HPF Invalid Interpretation Code AO Auto Urine SS Bilirubin Ql (U) Small *ABN* (01/22/23 7:29 PM) Invalid Interpretation Code Negative AO Auto Urine SS Color (U) Gini Invalid Interpretation Code AO Auto Urine SS Glucose Test strip (U) [Mass/Vol] Negative Invalid Interpretation Code Negative AO Auto Urine SS HCG ( test) Ql Negative (01/22/23 7:29 PM) Invalid Interpretation Code AO Manual Urine SS Hemoglobin Auto test strip (U) [Mass/Vol] Negative (01/22/23 7:29 PM) Invalid Interpretation Code Negative AO Auto Urine SS Ketones Ql (U) Negative Invalid Interpretation Code Negative AO Auto Urine SS test (u) int Not detected Invalid Interpretation Code AO Manual Urine SS UA Leuk Est Negative (01/22/23 7:29 PM) Invalid Interpretation Code Negative AO Auto Urine SS UA Mucous Trace /HPF Invalid Interpretation Code AO Auto Urine SS UA Nitrite Negative (01/22/23 7:29 PM) Invalid Interpretation Code Negative AO Auto Urine SS UA pH 5.5 (01/22/23 7:29 PM) Invalid Interpretation Code 5.0 - 8.0 AO Auto Urine SS UA Protein 30 mg/dL Invalid Interpretation Code Negative AO Auto Urine SS UA RBC 0-5 /HPF Invalid Interpretation Code None Seen AO Auto Urine SS UA Spec Grav >=1.030 *ABN* (01/22/23 7:29 PM) Invalid Interpretation Code 1.015-1.025 AO Auto Urine SS UA Specimen Type Clean Catch (01/22/23 7:29 PM) Invalid Interpretation Code AO Auto Urine SS UA Squam Epithelial 5-10 /HPF Invalid Interpretation Code None Seen AO Auto Urine SS UA Urobilinogen 0.2 E.U./dL Invalid Interpretation Code 0.2-1.0 AO Auto Urine SS WBC LM.HPF (Urine sed) [#/Area] 0-5 /HPF Invalid Interpretation Code None Seen AO Auto Urine SS Basophil percentageOrdered B y: Dr. Byrd on 07-22-2022 Bilirubin [Mass/Vol] 0.30 mg/dL 0.20-1.00 [facility] Comment on above: For patients on eltr ombopag therapy, use of Dimension [place] TBIL is not recommended. Chloride [Moles/Vol] 106 mmol/L 98-107 [facility] Cholesterol [Mass/Vol] 195 mg/dL <200 [facility] Comment on above: <200 mg/dL Desirable 200-240 mg/dL Borderline >240 mg/dL High Risk Glucose [Mass/Vol] 311 mg/dL 74-106 [facility] Comment on above: Glucose result great er than or equal to 200 mg/dLsuggests DIABETES MELLITUS per A.D.A. criteria. Potassium [Moles/Vol] 4.2 mmol/L 3.5-5.1 [facility] Protein [Mass/Vol] 7.6 g/dL 6.4-8.2 [facility] Sodium [Moles/Vol] 137 mmol/L 136-145 [facility] Triglyceride [Mass/Vol] 154 mg/dL <[address] [facility] Comment on above: The drugs N-Acetylcy steine and Metamizole may falsely depress this assay.Serum Triglycerides Reference Interval Normal <150 mg/dL Borderline high 150 - 199 mg/dL High 200 - 499 mg/dL Very High > or = 500 mg/dL Laboratory - Chemistry and C hemistry - challengeOrdered By: Dr. Byrd on 07-22-2022 ALP [Catalytic activity/Vol] 64 U/L 45-117 [facility] ALT [Catalytic activity/Vol] 20 U/L 13-56 [facility] CO2 [Moles/Vol] 19.0 mmol/L 21.0-32.0 [facility] Globulin (S) [Mass/Vol] 3.8 g/dL 2.2-4.[address] [facility] Urea nitrogen/Creatinine [Mass ratio] 10.7 mg/mg 10-20 [facility] No Panel InformationOrdered By: Dr. Byrd on 07-22-2022 Estimated GFR (MDRD) Amer 84 mL/min >60 [facility] Comment on above: GFR Calc Estimated GFR (MDRD) Non-Af Amer 70 mL/min >60 [facility] Comment on above: Non- GFR Calc Urine Microalbumin/Creatinine Ratio 52.4 mg/g CRE <30 [facility] Serum or plasma albumin lashonda urement (mass/volume)Ordered By: Dr. Byrd on 07-22-2022 Albumin [Mass/Vol] 3.8 g/dL 3.2-5.0 [facility] Serum or plasma albumin/glob ulin mass ratioOrdered By: Dr. Byrd on 07-22-2022 Albumin/Globulin [Mass ratio] 1.0 {ratio} 0.9-2.4 [facility] Serum or plasma calcium lashonda urement (mass/volume)Ordered By: Dr. Byrd on 07-22-2022 Calcium [Mass/Vol] 9.0 mg/dL 8.5-10.1 [facility] Serum or plasma cholesterol in HDL measurement (mass/volume)Ordered By: Dr. Byrd on 07-22-2022 Cholesterol in HDL [Mass/Vol] 48 mg/dL >40 [facility] Comment on above: The drugs N-Acetylcy steine and Metamizole may falsely depress this assay. Reference Range HDL <40 mg/dL Low HDL Cholesterol HDL >or= 60 mg/dL High HDL Cholesterol Serum or plasma cholesterol in VLDL measurement (mass/volume)Ordered By: Dr. Byrd on 07-22-2022 Cholesterol in VLDL [Mass/Vol] 31 mg/dL 5-40 [facility] Serum or plasma creatinine m easurement (mass/volume)Ordered By: Dr. Byrd on 07-22-2022 Creatinine [Mass/Vol] 0.94 mg/dL 0.55-1.02 [facility] Comment on above: The validity of the calculated GFR & GFRAA in patients over 70 years has not been determined. Clinical correlation is essential. Serum or plasma low density lipoprotein (LDL) cholesterol measurement (mass/volume)Ordered By: Dr. Byrd on 07-22-2022 Cholesterol in LDL [Mass/Vol] 116 mg/dL 0-130 [facility] Serum or plasma urea nitroge n measurement (mass/volume)Ordered By: Dr. Byrd on 07-22-2022 Urea nitrogen [Mass/Vol] 10 mg/dL 7-18 [facility] Thin prep Papanicolaou smear with manual screeningOrdered By: Dr. Byrd on 07-22-2022 Thin prep Papanicolaou smear with manual screening 14 U/L 15-37 [facility] Thin prep Papanicolaou smear with manual screening 12 5-15 [facility] Thin prep Papanicolaou smear with manual screening 49.6 mg/L NO RANGE EST. [facility] Urine creatinine measurement (mass/volume)Ordered By: Dr. Byrd on 07-22-2022 Creatinine (U) [Mass/Vol] 94.70 mg/dL NO RANGE EST. [facility] Whole blood hemoglobin A1c/t otal hemoglobin ratio (mass fraction)Ordered By: Dr. Byrd on 07-22-2022 HbA1c (Bld) [Mass fraction] 13.1 % 3.8-5.6 [facility] Comment on above: Normal < 5.7 % Predi abetic 5.7 - 6.4 % Diabetic >or= 6.5 % Please note range changes. Absolute lymphocyte countOrd ered By: Dr. Fletcher on 05-04-2022 Lymphocytes Auto (Unsp spec) [#/Vol] 3.94 10*3/uL 0.83-4.51 [facility] Basophil percentageOrdered B y: Dr. Fletcher on 05-04-2022 Basophil percentage 0 SEEN /hpf 0-5 [facility] Basophils/100 WBC (Bld) 0.4 % 0-[address] [facility] Bilirubin [Mass/Vol] 0.30 mg/dL 0.20-1.00 [facility] Comment on above: For patients on eltr ombopag therapy, use of Dimension Bryan TBIL is not recommended. Chloride [Moles/Vol] 101 mmol/L 98-107 [facility] Eosinophils/100 WBC (Bld) 1.4 % 0-5 [facility] Glucose [Mass/Vol] 431 mg/dL 74-106 [facility] Comment on above: Glucose result great er than or equal to 200 mg/dLsuggests DIABETES MELLITUS per A.D.A. criteria. Neutrophils (Bld) [#/Vol] 4.8 10*3/uL 2.0-7.7 [facility] Neutrophils/100 WBC (Bld) 50.0 % 47-70 [facility] Potassium [Moles/Vol] 3.9 mmol/L 3.5-5.1 [facility] Protein [Mass/Vol] 7.8 g/dL 6.4-8.2 [facility] Sodium [Moles/Vol] 134 mmol/L 136-145 [facility] WBC (Bld) [#/Vol] 9.7 10*3/uL 4.4-11.0 [facility] Bilirubin Test strip Ql (U)O rdered By: Dr. Fletcher on 05-04-2022 Bilirubin Ql (U) Negative Negative [facility] Blood erythrocytes count (nu mber/volume)Ordered By: Dr. Fletcher on 05-04-2022 RBC (Bld) [#/Vol] 4.95 10*6/uL 4.2-5.4 [facility] Blood hemoglobin measurement (mass/volume)Ordered By: Dr. Fletcher on 05-04-2022 Hemoglobin (Bld) [Mass/Vol] 13.4 g/dL 12.0-15.0 [facility] Blood lymphocytes/100 leukoc ytesOrdered By: Dr. Fletcher on 05-04-2022 Lymphocytes/100 WBC (Bld) 40.6 % 19-41 [facility] Blood monocytes/100 leukocyt esOrdered By: Dr. Fletcher on 05-04-2022 Monocytes/100 WBC (Bld) 7.2 % 0-[address] [facility] Blood platelet mean volumeOr dered By: Dr. Fletcher on 05-04-2022 Platelet mean volume (Bld) [Entitic vol] 10.5 fL 6.2-12.0 [facility] Determination of erythrocyte mean corpuscular volume (MCV)Ordered By: Dr. Fletcher on 05-04-2022 MCV (RBC) [Entitic vol] 81.2 fL 81-[address] [facility] Hematocrit Auto (Bld) [Volum e fraction]Ordered By: Dr. Fletcher on 05-04-2022 Hematocrit (Bld) [Volume fraction] 40.2 % 37-47 [facility] Ketones Test strip Ql (U)Ord ered By: Dr. Fletcher on 05-04-2022 Ketones Ql (U) 50 mg/dl Negative [facility] Laboratory - Chemistry and C hemistry - challengeOrdered By: Dr. Fletcher on 05-04-2022 ALP [Catalytic activity/Vol] 89 U/L 45-117 [facility] ALT [Catalytic activity/Vol] 50 U/L 13-56 [facility] CO2 [Moles/Vol] 24.0 mmol/L 21.0-32.0 [facility] Globulin (S) [Mass/Vol] 3.9 g/dL 2.2-4.[address] [facility] Urea nitrogen/Creatinine [Mass ratio] 13.2 mg/mg 10-20 [facility] - Hematology and Cell countsOrdered By: Dr. Fletcher on 05-04-2022 Erythrocyte distribution width (RBC) [Entitic vol] 37.7 fL 35.1-43.9 [facility] Erythrocyte distribution width (RBC) [Ratio] 12.8 % 11.6-14.6 [facility] Immature granulocytes/100 WBC (Bld) 0.400 % 0.0-0.9 [facility] Comment on above: IG% - Immature Granu locytes (promyelocytes, myelocytes and metamyelocytes) > 1% indicates that a LEFT SHIFT is Present. MCH (RBC) [Entitic mass] 27.1 pg 27.0-32.0 [facility] Nucleated RBC/100 WBC (Bld) [Ratio] 0 % 0-5 [facility] MCHC Auto (RBC) [Mass/Vol]Or dered By: Dr. Fletcher on 05-04-2022 MCHC (RBC) [Mass/Vol] 33.3 g/dL 32-36 [facility] Mucus LM Ql (Urine sed)Order ed By: Dr. Fletcher on 05-04-2022 Mucus Ql (Urine sed) 0 SEEN /hpf [facility] Nitrite Test strip Ql (U)Ord ered By: Dr. Fletcher on 05-04-2022 Nitrite Ql (U) Negative Negative [facility] No Panel InformationOrdered By: Dr. Fletcher on 05-04-2022 Estimated Creatinine Clearance Calc 65.50 ml/min [facility] Estimated GFR (MDRD) Amer 63 mL/min >60 [facility] Comment on above: GFR Calc Estimated GFR (MDRD) Non-Af Amer 52 mL/min >60 [facility] Comment on above: Non- GFR Calc Platelets bldOrdered By: Dr. Fletcher on 05-04-2022 Platelets (Bld) [#/Vol] 315 10*3/uL 150-450 [facility] Protein Test strip Ql (U)Ord ered By: Dr. Fletcher on 05-04-2022 Protein Ql (U) 30 mg/dl Negative [facility] Serum or plasma albumin lashonda urement (mass/volume)Ordered By: Dr. Fletcher on 05-04-2022 Albumin [Mass/Vol] 3.9 g/dL 3.2-5.0 [facility] Serum or plasma albumin/glob ulin mass ratioOrdered By: Dr. Fletcher on 05-04-2022 Albumin/Globulin [Mass ratio] 1.0 {ratio} 0.9-2.4 [facility] Serum or plasma calcium lashonda urement (mass/volume)Ordered By: Dr. Fletcher on 05-04-2022 Calcium [Mass/Vol] 8.8 mg/dL 8.5-10.1 [facility] Serum or plasma creatinine m easurement (mass/volume)Ordered By: Dr. Fletcher on 05-04-2022 Creatinine [Mass/Vol] 1.21 mg/dL 0.55-1.02 [facility] Comment on above: The validity of the calculated GFR & GFRAA in patients over 70 years has not been determined. Clinical correlation is essential. Serum or plasma urea nitroge n measurement (mass/volume)Ordered By: Dr. Fletcher on 05-04-2022 Urea nitrogen [Mass/Vol] 16 mg/dL 7-18 [facility] Squamous epithelial cells de tection in urine sediment by light microscopyOrdered By: Dr. Fletcher on 05-04-2022 Epithelial cells.squamous LM Ql (Urine sed) 0-5 SEEN /hpf 5-10 [facility] Thin prep Papanicolaou smear with manual screeningOrdered By: Dr. Fletcher on 05-04-2022 Thin prep Papanicolaou smear with manual screening 43 U/L 15-37 [facility] Thin prep Papanicolaou smear with manual screening 9 5-15 [facility] Urine blood detectionOrdered By: Dr. Fletcher on 05-04-2022 RBC Ql (U) 25 /ul Negative [facility] RBC Ql (U) 0 SEEN /hpf 0-5 [facility] Urine clarityOrdered By: Dr. Fletcher on 05-04-2022 Clarity (U) Clear Clear [facility] Urine color determinationOrd ered By: Dr. Fletcher on 05-04-2022 Color (U) Yellow Yellow [facility] Urine glucose detectionOrder ed By: Dr. Fletcher on 05-04-2022 Glucose Ql (U) 1000 mg/dl Normal [facility] Urine leukocyte esterase det ection by dipstickOrdered By: Dr. Fletcher on 05-04-2022 Leukocyte esterase Test strip Ql (U) Negative Negative [facility] Urine pHOrdered By: Dr. Kelley ndiaye on 05-04-2022 pH (U) 5.0 [pH] 5.0 - 8.0 [facility] Urine sediment bacteria coun t by microscopy (number/high power field)Ordered By: Dr. Fletcher on 05-04-2022 Bacteria LM.HPF (Urine sed) [#/Area] 0 /[HPF] None Seen [facility] Urine specific gravity measu rementOrdered By: Dr. Fletcher on 05-04-2022 Specific gravity (U) [Rel density] 1.020 1.002-1.030 [facility] Urobilinogen Auto test strip Ql (U)Ordered By: Dr. Fletcher on 05-04-2022 Urobilinogen Ql (U) Normal mg/dl Normal [facility] Whole blood hemoglobin A1c/t otal hemoglobin ratio (mass fraction)Ordered By: Dr. Fletcher on 05-04-2022 HbA1c (Bld) [Mass fraction] 10.3 % 3.8-5.6 [facility] Comment on above: Normal < 5.7 % Predi abetic 5.7 - 6.4 % Diabetic >or= 6.5 % Please note range changes. Vital Signs Date Time Vital Sign Value Performing Clinician Facility 01-22-2023 22:04-0400 Diastolic Blood Pressure Non-Invasive 83 1 JD ESCALANTE DO [facility] 01-22-2023 22:04-0400 Heart rate 87 /min JD ESCALANTE DO [facility] 01-22-2023 22:04-0400 Respiratory rate 16 /min JD ESCALANTE DO [facility] 01-22-2023 22:04-0400 Systolic Blood Pressure Non-Invasive 106 1 JD ESCALANTE DO [facility] 01-22-2023 19:24-0400 Body temperature 98.78 [degF] JD ESCALANTE DO [facility] 01-22-2023 19:24-0400 Diastolic Blood Pressure Non-Invasive 80 1 JD ESCALANTE DO [facility] 01-22-2023 19:24-0400 Heart rate 104 /min JD ESCALANTE DO [facility] 01-22-2023 19:24-0400 Respiratory rate 18 /min JD ESCALANTE DO [facility] 01-22-2023 19:24-0400 Systolic Blood Pressure Non-Invasive 112 1 JD ESCALANTE DO [facility] 06-19-2022 16:51-0500 Body height 177.8 cm [facility] 06-19-2022 16:51-0500 Body weight 123.55 kg [facility] 05-04-2022 07:46-0500 Body mass index (BMI) [Ratio] 42.5 kg/m2 [facility] 05-04-2022 07:46-0500 Body temperature 96.7 [degF] [facility] 05-04-2022 07:46-0500 Body weight 134.58 kg [facility] 05-04-2022 07:46-0500 Diastolic blood pressure 96 mm[Hg] [facility] 05-04-2022 07:46-0500 Heart rate 99 /min [facility] 05-04-2022 07:46-0500 Respiratory rate 17 /min [facility] 05-04-2022 07:46-0500 SaO2% (BldA) [Mass fraction] 100 % [facility] 05-04-2022 07:46-0500 Systolic blood pressure 126 mm[Hg] [facility] Encounters Encounter Date Encounter Type Care Provider Facility Start: 07-26-2024 ambulatory Lilian Byrd [place] [facility] Start: 07-26-2024 End: 07-26-2024 ambulatory [facility] Facility:[facility] Start: 06-14-2024 End: 06-14-2024 ambulatory [facility] Facility:[facility] Start: 05-30-2024 End: 05-30-2024 ambulatory [facility] Facility:[facility] Start: 05-19-2024 End: 05-19-2024 ambulatory [facility] Facility:[facility] Start: 01-13-2024 ambulatory Joshua ellis MD Work Phone: Internal [facility] Start: 09-11-2023 End: 09-11-2023 ambulatory [facility] Work Phone: Start: 09-11-2023 End: 09-11-2023 Patient encounter procedure [facility], Specimen Work Phone: Start: 02-11-2023 ambulatory Joshua ellis MD Work Phone: Internal [facility] Start: 01-22-2023 End: 01-22-2023 Emergency department patient visit JD ESCALANTE DO [facility] Start: 07-22-2022 End: 07-22-2022 ambulatory [facility] Work Phone: Start: 07-22-2022 End: 07-22-2022 Patient encounter procedure [facility], [facility] Start: 06-19-2022 End: 07-08-2022 ambulatory [facility] Work Phone: Start: 06-19-2022 End: 07-08-2022 Discharged Recurring [facility] Start: 05-04-2022 End: 05-04-2022 Emergency department patient visit [facility] Start: 12-17-2020 Patient encounter status Joshua Vera MD Work Phone: [facility] Work Phone: Procedures Date Procedure Procedure Detail Performing Clinician Start: 01-11-2021 Mammography Joshua lamb MD Work Phone: Plan of Treatment Date Care Activity Detail Author Start: 12-06-2045 PNEUMOCOCCAL (1 - PCV) PNEUMOCOCCAL (1 - PCV) [facility] Comment on above: Postponed from 08/26 (Postponed To Appropriate Date) Start: 12-06-2045 Pneumococcal vaccination Pneumococcal Vaccine (1 of 2 - PCV) [facility] Comment on above: Postponed from 08/26 (Postponed To Appropriate Date) Start: 12-17-2030 Urine microalbumin profile [facility] Start: 12-28-2025 HPV TESTING HPV TESTING [facility] Start: 12-28-2025 PAP TESTING PAP TESTING [facility] Start: 12-28-2025 Screening for malign ant neoplasm of cervix Cervical Cancer Screening [facility] Start: 02-07-2024 Influenza vaccination Influenza Vacc ine (#1) [facility] Start: 09-11-2023 [facility] Start: 02-06-2023 Covid-19 Vaccine ( season) Covid-19 Vaccine () [facility] Start: 02-06-2023 Influenza vaccination INFLUENZA (#1) [facility] Start: 06-08-2022 DEPRESSION ASSESSMENT DEPRESSION ASS ESSMENT [facility] Start: 04-09-2022 ANNUAL PCP TEAM HEAVY COIL WINDER KAREN DISEASE VISIT ANNUAL PCP TEAM CHRONIC DISEASE VISIT [facility] Start: 01-11-2022 Mammography MAMMOGRAM [facility] Start: 01-11-2022 Screening for malign ant neoplasm of breast Mammogram Screening [facility] Start: 12-24-2021 Hepatitis B surface antibody level LDL CHOLESTEROL [facility] Start: 06-26-2021 Hemoglobin A1c measurement HbA1C [facility] Start: 06-26-2021 Hemoglobin A1c/Hemoglobin.total in Blood HBA1C [facility] Start: 08-26-1998 Hepatitis B Vaccine (1 of 3 - 19+ 3-dose series) Hepatitis B Vaccine (1 of 3 - 19+ 3-dose series) [facility] Start: 08-26-1997 Anxiety Screening Anxiety Screening [facility] Start: 08-26-1997 Depression Screening Depression Scre ening [facility] Start: 08-26-1989 3 comp foot exam completed DIABETIC FOOT EXAM [facility] Start: 08-26-1989 Diabetic foot examination Diabetic Foot Exam [facility] Start: 08-26-1989 Glaucoma screening Dilated Retinal E xam [facility] Start: 08-26-1989 Hepatitis B screening URINE ALBUMIN:CREATININE RATIO [facility] Start: 08-26-1989 Hepatitis C antibody , confirmatory test DILATED RETINAL EXAM [facility] Start: 02-27-1980 COVID-19 VACCINE (#1) COVID-19 VACCI NE (#1) [facility] Start: 1980 HEPATITIS B (1 of 3 - 3-dose series) HEPATITIS B (1 of 3 - 3-dose series) [facility] End: 02-11-2025 DBT Breast - bilateral screening [facility] Routine Encounter for screening mammogram for breast cancer 1 Occurrences starting 01/13/2024 until 02/11/2025 [facility] Work Phone: Comment on above: 1 Occurrences starti ng 01/13/2024 until 02/11/2025 End: 03-12-2024 JASON SCREENING [facility] SCREEN[facility] Radiology Routine Encounter for screening mammogram for breast cancer 1 Occurrences starting 02/11/2023 until 03/12/2024 [facility] Work Phone: Comment on above: 1 Occurrences starti ng 02/11/2023 until 03/12/2024 Patient Education Type 2 Diabetes [facility] Work Phone: Patient referral [facility] Work Phone: Immunizations Immunization Date Immunization Notes Care Provider Verónica noriega 12-17-2020 tetanus toxoid, redu rachel diphtheria toxoid, and acellular pertussis vaccine, adsorbed Joshua Vera MD Work Phone: [facility] 12-29-2014 tetanus toxoid, redu rachel diphtheria toxoid, and acellular pertussis vaccine, adsorbed [facility] Payers Date Payer Category Payer Self-pay [id number] 2024 Unknown [id number] 2024 Unknown [id number] 2022 Medicaid [id number] Unknown [facility] PLAN [id number] Unknown [id number] [id number] Unknown [id number] [id number] Unknown [id number] [id number] [id number] Unknown [id number] [id number] [id number] Unknown [id number] [id number] [id number] Social History Date Type Detail Facility Start: 05-04-2022 End: 05-04-2022 Tobacco smoking status [facility] Unknown if ever smoked [facility] Start: 1980 Sex Assigned At Female 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) [facility] Start: 04-09-2021 End: 06-23-2022 Tobacco use panel [facility] Adult Depression Screening Assessment 6 [facility] Start: 05-27-2013 Tobacco Comment 10 cigarettes per da y [facility] Start: 1980 Sex Assigned At Not [facility] file [facility] NEGATED: Highlighted row [facility] Functional Status Date Assessment Result Facility 01-22-2023 Functional Status Assistive Device None A [facility] Mental Status Date Assessment Result Facility 01-22-2023 Mental Status Orientation Oriented x 4 [facility] 01-22-2023 Mental Status [facility] Clinical Notes 01-22-2023 to 07-26-2024 Note Date & Type Note Facility 07-26-2024 Note [facility] Medical Records Department [address] [address] History Physical Exam 07/26/24 0727 MR#: [id number] Acct: [id number] Name: ESTRELLA MC Rep #: [id number] : 1980 43 From: Sonu Bueno MD PCP: Dr. Lilian Byrd MD Status:[facility] Location: [place] [address] HPI - General General Date of Admission: 07/26/24 Date of Service: 07/26/24 Chief Complaint: Colonoscopy HPI Narrative The patient is a 43-year-old female who is here today to undergo colonoscopy. She has had some recent constipation as well as some abdominal discomfort. She does have a cousin with a history of colon cancer [facility] Medical History Depression Wears glasses Foot abrasion Diabetes Arthritis Dietary restriction History of diverticulitis Smoker Shortness of breath on exertion History of pain when walking Acid reflux Diarrhea Constipation Home Medications ???Medication ???Instructions ???Recorded ???Last Taken ???Type cyclobenzaprine 10 mg tablet 10 mg PO TID PRN Muscle Spasm #15 05/04/22 Unknown Rx TABLETS metformin 500 mg tablet 500 mg PO BID #30 tabs 05/04/22 Rx dulaglutide 3 mg/0.5 mL 3 mg subcut WE 05/30/24 07/13/24 H istory subcutaneous pen injector (Trulicity) esomeprazole magnesium 20 mg 20 mg PO DAILY 06/24/24 Unknown Hi story capsule,delayed release fluoxetine 10 mg capsule 10 mg PO DAILY 06/24/24 Unknown Hi story latanoprost 0.005 % eye drops 1 drp ophthalmic (eye) QHS 5 Unknown History lisinopril 2.5 mg tablet 2.5 mg PO DAILY 06/24/24 Unknown H istory Allergy/AdvReac Type Severity Reaction Status Date / Time hydrocodone bitartrate (From Allergy Rash Verified 07/26/24 06:40 Vicodin) Surgical History Hx of tubal ligation Social History Smoking Status: Current every day smoker (Patient smoked today.) tobacco type: cigarettes alcohol intake: never substance use type: does not use ROS Eyes Eyes: Reports systems reviewed and no addt'l complaints, except as documented ENT HEENT: Reports systems reviewed and no addt'l complaints, except as documented Cardiovascular Cardiovascular: Reports systems reviewed and no addt'l complaints, except as documented Respiratory/Chest Respiratory/Chest: Reports systems reviewed and no addt'l complaints, except as documented Gastrointestinal Gastrointestinal: Reports systems reviewed and no addt'l complaints, except as documented Genitourinary Genitourinary: Reports systems reviewed and no addt'l complaints, except as documented Vital Signs Vital Signs Vital Signs: 07/26/24 06:42 07/26/24 06:42 07/26/24 07:19 Temperature 97.1 F L 97.1 F L Temperature Source Temporal Pulse Rate 84 84 Respiratory Rate 16 16 Respiratory Pattern Normal Blood Pressure 132/80 H 132/80 H Blood Pressure Mean 97 Blood Pressure Source Monitor Blood Pressure Position Semi-Fowlers Blood Pressure Location Left Arm Pulse Ox 100 100 Oxygen Delivery Method Room Air Room Air Weight Weight: 252 lb Body Mass Index (BMI) 35.1 Physical Exam Const alert, oriented x3 and no apparent distress Results Lab / Micro Data Labs: Laboratory Results - last 24 hr 07/26/24 06:44: POC Glucose 129 H Assessment Plan Assessment/Plan (1) Constipation: PLAN: Plan The patient is a 43-year-old female in need of a colonoscopy. We discussed the details of the planned procedure and she wishes to proceed. This will begin momentarily 07/26/24728 Cosigner Signature (if applicable): CC: Dr. Lilian Byrd MD; Dr. Sonu Bueno MD Signed [facility] 07-26-2024 Note [facility] Medical Records Department [address] [address] History Physical Exam 07/26/24 0726 MR#: [id number] Acct: [id number] Name: ESTRELLA MC Rep #: [id number] : 1980 43 From: Sonu Bueno MD PCP: Dr. Lilian Byrd MD Status:[facility] Location: [place] 08/17/24 [facility] Cosigner Signature (if applicable): CC: Dr. Lilian Byrd MD; Dr. Sonu Bueno MD Signed [facility] 01-13-2024 Note Patient Outreach (IN [facility]) ESTRELLA MC ([id number]) 1980 F Date Time Provider Department 01/13/24 JOSHUA VERA During your visit today, we recorded the following information about you: Allergies As of Date: 01/13/2024 Noted Allergy Reaction HYDROCODONE-ACETAMINOPHEN 05/27/2013 2 - Rash Date Reviewed: 04/09/2021 Reviewed by: Viki Rubio) - Fully Assessed Visit Diagnosis:Encounter for screening mammogram for breast cancer [Z12.31] Order(s):[facility] SCREENING [facility] [[id number]] Order #: [id number] FUTURE Prescriptions as of 01/18/2024 - ibuprofen (MOTRIN) 800 mg tablet Take 1 tablet by mouth every 8 hours as needed (FOR PAIN. TAKE WITH FOOD). Problem List As Of Date 01/13/2024 Noted Resolved Abdominal pain [R10.9] 05/27/2013 Smoker [F17.200] 12/17/2020 Encounter for gynecological examination [Z01.41*12/17/2020 History of marijuana use [F12.91] 12/17/2020 Family history of leukemia [Z80.6] 12/17/2020 Primary osteoarthritis of both knees [M17.0] 12/24/2020 Arthritis of hip [M16.10] 12/24/2020 Complex cyst of right ovary [N83.291] 12/24/2020 Pelvic pain [R10.2] 12/24/2020 Type 2 diabetes mellitus without complication, *12/27/2020 Encounter Status:Closed by ILIR QUINTANILLA on 01/18/24 [facility] 09-11-2023 Note [facility] Pap Smear Specimen Adequacy September 11, 2023 11:30am Comment . Satisfactory for evaluation. Endocervical and/or squamous metaplasticcells (endocervical component) are present. Comment on above: Satisfactory for hugh luation. Endocervical and/or squamous metaplasticcells (endocervical component) are present. 02-11-2023 Note Patient Outreach (IN [facility]) ESTRELLA MC ([id number]) 1980 F Date Time Provider Department 02/11/23 JOSHUA VERA During your visit today, we recorded the following information about you: Allergies As of Date: 02/11/2023 Noted Allergy Reaction HYDROCODONE-ACETAMINOPHEN 05/27/2013 2 - Rash Date Reviewed: 04/09/2021 Reviewed by: Viki Rubio Ma - Fully Assessed Visit Diagnosis:Encounter for screening mammogram for breast cancer [Z12.31] Order(s):[facility] SCREENING [[id number]] Order #: [id number] FUTURE Prescriptions as of 02/16/2023 - ibuprofen (MOTRIN) 800 mg tablet Take 1 tablet by mouth every 8 hours as needed (FOR PAIN. TAKE WITH FOOD). Problem List As Of Date 02/11/2023 Noted Resolved Abdominal pain [R10.9] 05/27/2013 Smoker [F17.200] 12/17/2020 Encounter for gynecological examination [Z01.41*12/17/2020 History of marijuana use [F12.91] 12/17/2020 Family history of leukemia [Z80.6] 12/17/2020 Primary osteoarthritis of both knees [M17.0] 12/24/2020 Arthritis of hip [M16.10] 12/24/2020 Complex cyst of right ovary [N83.291] 12/24/2020 Pelvic pain [R10.2] 12/24/2020 Type 2 diabetes mellitus without complication, *12/27/2020 Encounter Status:Closed by ILIR QUINTANILLA on 02/16/23 [facility] 01-22-2023 Hospital Discharge instructions Patient Education 01/22/2023 21:54:33 Understanding Diverticulosis and Diverticulitis Understanding Diverticulosis and Diverticulitis Pouches or diverticula usually occur in the lower part of the colon called the sigmoid. The colon (large intestine) is the last part of the digestive tract. It absorbs water from stool and changes it from a liquid to a solid. In certain cases, small pouches called diverticula can form in the colon wall. This condition is called diverticulosis. It's very common as people get older. The pouches can become infected. If this happens, it becomes a more serious problem called diverticulitis. These problems can be painful. But they can be managed. Managing your condition Diet changes or medicines may be prescribed. If you have diverticulosis Recommendations include: Diet changes are often enough to control symptoms. The main changes are adding fiber (roughage) and drinking more water. Fiber absorbs water as it travels through your colon. This helps your stool stay soft and move smoothly. Water helps this process. If needed, you may be told to take [id number] stool softeners. To help ease pain, antispasmodic medicines may be prescribed. Watch for changes in your bowel movements. Tell your healthcare provider if you notice any changes. Begin an exercise program. Ask your healthcare provider how to get started. Get plenty of rest and sleep. If you have diverticulitis Treatment depends on how bad your symptoms are. For mild symptoms. You may be put on a liquid diet for a short time. Antibiotics are usually prescribed. If these 2 steps relieve your symptoms, you may then be prescribed a high-fiber diet. If you still have symptoms, your healthcare provider will discuss more treatment choices with you. For severe symptoms. You may need to be admitted to the hospital. There, you can be given IV antibiotics and fluids. You will also be put on a low-fiber or liquid diet. Although not common, surgery is needed in some people with severe symptoms. Coward to colon health Diverticulitis occurs when the pouches become infected or inflamed. Help keep your colon healthy with a diet that includes plenty of high-fiber fruits, vegetables, and whole grains. Drink plenty of liquids like water and juice. Maintain a healthy lifestyle, including regular exercise, stress management, and adequate rest and sleep. 9805-[address] [employer] [place], [place] [id number]. All rights reserved. This information is not intended as a substitute for professional medical care. Always follow your healthcare professional's instructions. 01/22/2023 21:54:32 Diverticulitis Diverticulitis Some people get pouches along the wall of the colon as they get older. The pouches, called diverticuli, usually cause no symptoms. If the pouches become blocked, you can get an infection. This infection is called diverticulitis. It causes pain in your lower abdomen and fever. If not treated, it can become a serious condition, causing an abscess to form inside the pouch. The abscess may block the intestinal tract even or rupture, spreading infection throughout the abdomen. When treatment is started early, oral antibiotics alone may be enough to cure diverticulitis. This method is tried first. But, if you don't improve or if your condition gets worse while using oral antibiotics, you may need to be admitted to the hospital for IV antibiotics. Severe cases may require surgery. Home care The following guidelines will help you care for yourself at home: During the acute illness, rest and follow your healthcare provider's instructions about diet. Sometimes you will need to follow a clear liquid diet to rest your bowel. Once your symptoms are better, you may be told to follow a low-fiber diet for some time. Include foods like: oFlake cereal, mashed potatoes, pancakes, waffles, pasta, white bread, rice, applesauce, bananas, eggs, fish, poultry, tofu, and cooked soft vegetables Take antibiotics exactly as instructed. Don't miss any doses or stop taking the medication, even if you feel better. Monitor your temperature and tell your healthcare provider if you have rising temperatures. Preventing future attacks Once you have an episode of diverticulitis, you are at risk for having it again. After you have recovered from this episode, you may be able to lower your risk by eating a high-fiber diet (20 gm/day to 35 gm/day of fiber). This cleans out the colon pouches that already exist and may prevent new ones from forming. Foods high in fiber include fresh fruits and edible peelings, raw or lightly cooked vegetables, whole grain cereals and breads, dried beans and peas, and bran. Other steps that can help prevent future attacks include: Take your medicines, such as antibiotics, as your healthcare provider says. Drink 6 to 8 glasses of water every day, unless told otherwise. Use a heating pad or hot water bottle to help abdominal cramping or pain. Begin an exercise program. Ask your healthcare provider how to get started. You can benefit from simple activities such as walking or gardening. Treat diarrhea with a bland diet. Start with liquids only; then slowly add fiber over time. Watch for changes in your bowel movements (constipation to diarrhea). Avoid constipation by eating a high fiber diet and taking a stool softener if needed. Get plenty of rest and sleep. Follow-up care Follow up with your healthcare provider as advised or sooner if you are not getting better in the next 2 days. When to seek medical advice Call your healthcare provider right away if any of these occur: Fever of 100.4 F (38 C) or higher, or as directed by your healthcare provider Repeated vomiting or swelling of the abdomen Weakness, dizziness, light-headedness Pain in your abdomen that gets worse, severe, or spreads to your back Pain that moves to the right lower abdomen Rectal bleeding (stools that are red, black or maroon color) Unexpected vaginal bleeding [id number] [employer]. [address] [place] [address]. All rights reserved. This information is not intended as a substitute for professional medical care. Always follow your healthcare professional's instructions. Follow Up Care 01/22/2023 19:22:46 With:FORREST HENRY MD Address: [address] [phone] When:2-4 days With:Follow up with primary care provider Address:Unknown When:2-4 days With:Call AILYN Michael Pt. Refferral [phone] Address:Unknown When:2-4 days [facility] 01-22-2023 Note Discharge Instructions Thank you for allowing [facility] to assist you with your healthcare needs. The following is important discharge information regarding your hospital visit. Diagnosis from Today's Visit Abdominal pain Diverticulitis What to Do Next Instructions from Your Care Team No qualifying data available. Post Acute Orders No qualifying data available. You Need to Schedule the Following Appointments Follow Up with FORREST HENRY MD When Within 2-4 days Where: [address] [place] [address] [phone] Follow Up with Follow up with primary care provider When Within 2-4 days Follow Up with Call AMB New Pt. Refferral [phone] When Within 2-4 days Allergies NKA Medications Please ask your primary doctor or pharmacist before taking any other medication not listed, including over the counter drugs, herbal medications, vitamins and or supplements as they may interact with your home medications. What How Much When Why Instructions Last Dose New acetaminophen-hydrocodone ([place] 325- 5 mg oral tablet) 1 tab(s) by mouth Every 6 hours as needed for as needed for pain Diverticulitis Duration: 2 Days Printed Prescription New ciprofloxacin (Cipro 500 mg oral tablet) 1 tab(s) by mouth Every 12 hours Duration: 7 Days Printed Prescription New metroNIDAZOLE (metroNIDAZOLE 500 mg oral tablet) 1 tab(s) by mouth Every 8 hours Duration: 7 Days Printed Prescription New ondansetron (ondansetron 4 mg oral tablet, disintegrating) 1 tab(s) by mouth Every 8 hours as needed for as needed for nausea/vomiting Duration: 3 Days Printed Prescription Please take this list to your next doctor s visit. Bring all medications you take, including over the counter medications, herbals and other supplements with you to your doctor s visit. Patients and families are reminded to discard old lists and to update any records with all medication providers or retail pharmacies. Education Materials Understanding Diverticulosis and Diverticulitis Pouches or diverticula usually occur in the lower part of the colon called the sigmoid. The colon (large intestine) is the last part of the digestive tract. It absorbs water from stool and changes it from a liquid to a solid. In certain cases, small pouches called diverticula can form in the colon wall. This condition is called diverticulosis. It's very common as people get older. The pouches can become infected. If this happens, it becomes a more serious problem called diverticulitis. These problems can be painful. But they can be managed. Managing your condition Diet changes or medicines may be prescribed. If you have diverticulosis Recommendations include: Diet changes are often enough to control symptoms. The main changes are adding fiber (roughage) and drinking more water. Fiber absorbs water as it travels through your colon. This helps your stool stay soft and move smoothly. Water helps this process. If needed, you may be told to take [id number]-[id number] stool softeners. To help ease pain, antispasmodic medicines may be prescribed. Watch for changes in your bowel movements. Tell your healthcare provider if you notice any changes. Begin an exercise program. Ask your healthcare provider how to get started. Get plenty of rest and sleep. If you have diverticulitis Treatment depends on how bad your symptoms are. For mild symptoms. You may be put on a liquid diet for a short time. Antibiotics are usually prescribed. If these 2 steps relieve your symptoms, you may then be prescribed a high-fiber diet. If you still have symptoms, your healthcare provider will discuss more treatment choices with you. For severe symptoms. You may need to be admitted to the hospital. There, you can be given IV antibiotics and fluids. You will also be put on a low-fiber or liquid diet. Although not common, surgery is needed in some people with severe symptoms. Coward to colon health Diverticulitis occurs when the pouches become infected or inflamed. Help keep your colon healthy with a diet that includes plenty of high-fiber fruits, vegetables, and whole grains. Drink plenty of liquids like water and juice. Maintain a healthy lifestyle, including regular exercise, stress management, and adequate rest and sleep. [phone] [employer]. [address] [place] [address]. All rights reserved. This information is not intended as a substitute for professional medical care. Always follow your healthcare professional's instructions. Diverticulitis Some people get pouches along the wall of the colon as they get older. The pouches, called diverticuli, usually cause no symptoms. If the pouches become blocked, you can get an infection. This infection is called diverticulitis. It causes pain in your lower abdomen and fever. If not treated, it can become a serious condition, causing an abscess to form inside the pouch. The abscess may block the intestinal tract even or rupture, spreading infection throughout the abdomen. When treatment is started early, oral antibiotics alone may be enough to cure diverticulitis. This method is tried first. But, if you don't improve or if your condition gets worse while using oral antibiotics, you may need to be admitted to the hospital for IV antibiotics. Severe cases may require surgery. Home care The following guidelines will help you care for yourself at home: During the acute illness, rest and follow your healthcare provider's instructions about diet. Sometimes you will need to follow a clear liquid diet to rest your bowel. Once your symptoms are better, you may be told to follow a low-fiber diet for some time. Include foods like: oFlake cereal, mashed potatoes, pancakes, waffles, pasta, white bread, rice, applesauce, bananas, eggs, fish, poultry, tofu, and cooked soft vegetables Take antibiotics exactly as instructed. Don't miss any doses or stop taking the medication, even if you feel better. Monitor your temperature and tell your healthcare provider if you have rising temperatures. Preventing future attacks Once you have an episode of diverticulitis, you are at risk for having it again. After you have recovered from this episode, you may be able to lower your risk by eating a high-fiber diet (20 gm/day to 35 gm/day of fiber). This cleans out the colon pouches that already exist and may prevent new ones from forming. Foods high in fiber include fresh fruits and edible peelings, raw or lightly cooked vegetables, whole grain cereals and breads, dried beans and peas, and bran. Other steps that can help prevent future attacks include: Take your medicines, such as antibiotics, as your healthcare provider says. Drink 6 to 8 glasses of water every day, unless told otherwise. Use a heating pad or hot water bottle to help abdominal cramping or pain. Begin an exercise program. Ask your healthcare provider how to get started. You can benefit from simple activities such as walking or gardening. Treat diarrhea with a bland diet. Start with liquids only; then slowly add fiber over time. Watch for changes in your bowel movements (constipation to diarrhea). Avoid constipation by eating a high fiber diet and taking a stool softener if needed. Get plenty of rest and sleep. Follow-up care Follow up with your healthcare provider as advised or sooner if you are not getting better in the next 2 days. When to seek medical advice Call your healthcare provider right away if any of these occur: Fever of 100.4 F (38 C) or higher, or as directed by your healthcare provider Repeated vomiting or swelling of the abdomen Weakness, dizziness, light-headedness Pain in your abdomen that gets worse, severe, or spreads to your back Pain that moves to the right lower abdomen Rectal bleeding (stools that are red, black or maroon color) Unexpected vaginal bleeding [phone] [employer]. [address] [place] [address]. All rights reserved. This information is not intended as a substitute for professional medical care. Always follow your healthcare professional's instructions. Additional Information VACCINATE! IT SAVES LIVES! Members of the community who have not yet received the COVID-19 vaccine and would like to receive it can visit one of [facility] vaccine clinics. There are many vaccine clinic locations within the [facility]. For locations and available times, please visit [email or web address] [email or web address] It is important to note that some COVID mobile vaccine clinics are held outdoors and may be canceled in rainy or stormy conditions. To learn more about pediatric vaccinations (ages 5-11), we invite you to visit the [facility] webpage. [email or web address]/p ages/7245-Yaeqd-Iqojuamffqk-Freq vgcklb-Yyerf-[email or web address].html To learn more about the COVID-19 vaccine, we invite you to visit the CDC website for a list of frequently asked questions. https://www.cdc.gov/coronavirus/ 2019-ncov/vaccines/faq.html [facility] Patient Portal Access Instructions: Stay connected with your healthcare team and access your personal medical information anytime with the [facility] Patient Portal. If you would like a full copy of your medical records please contact the [facility] Medical Records Department Thursday through Thursday between 8a.m. and 4:30p.m. Please follow the directions below to access the portal: 1.Access the email account you [facility].2.Look for an invitation email from [facility].3.Open the email and access the invitation link: Accept Invitation to [facility]4.Fill in the required lu to create your account. Sign into [email or web address] with your username and password that you created in the above steps to stay up to date. You can then view a summary of results, a summary of your visits, and the ability to download your summaries to your computer or send the information securely to a physician. Remember that your healthcare information is confidential, so carefully consider who you will allow to register on the [employer] Patient Portal for access to your information. You can also access the [employer] Patient Portal on the [employer]. Simply click on Health Records under [employer] and then click on the Hello[employer] Messenger logo. HOW TO SAFELY DISPOSE OF PRESCRIPTION MEDICATIONS Please use one of the following methods to safely dispose of your unused medications. 1.Use a drug disposal kit: the drug disposal pouch allows you to safely discard your old and unused drugs. Ask your nurse to give you one when you are discharged.2.Visit a local take-back location: Many local pharmacies and police departments have programs that collect old and unwanted prescription drugs. Call your local pharmacy or go to http://[employer]/2Y8Zd7i to find one close to you.3.Make use of household items: Use cat litter or old coffee grounds to dispose medications if other options are not available. Mix your drugs with these household products, seal them in an airtight container and throw it into the garbage. Call [facility]: [phone] to be sure your drugs can be disposed of in this way. Some medicines may require a different approach.4.Never flush your medications down the toilet. IF YOU HAVE BEEN PRESCRIBED AN OPIOIDS FOR PAIN If you have been prescribed an opioid (such as hydrocodone, oxycodone or morphine), it is critical to understand the possible side effects and risks of opioid pain medications. Even when taken as directed, opioids can have several side effects including: Tolerance, meaning you might need to take more of a medication for the same pain relief. Nausea, vomiting and/or constipation. Sleepiness, dizziness, dry mouth, confusion, depression or itching. Physical dependence, meaning you have withdrawal symptoms when a medication is stopped ? this can develop within a few days. KNOW YOUR RESPONSIBILITIES It is important to know exactly how much and how often to take the opioid pain medications you are prescribed. Never take opioids in higher amounts or more often than prescribed. Do not combine opioids with alcohol or other drugs that cause drowsiness, such as benzodiazepines, also known as benzos, including diazepam and alprazolam, muscle relaxants or sleep aids. Never sell or share prescription opioids. This is illegal. Store opioids in a secure place and out of reach of others (including children, family, friends and visitors). The last page(s) of this document has been signed and retained as a CHART COPY Signatures Patient Education Materials Understanding Diverticulosis and Diverticulitis Diverticulitis Medication Leaflets My discharge plan and instructions have been reviewed and explained to me and I,ESTRELLA MC understand my current condition and have read and understand these discharge instructions. I have received a written copy of the plan/instructions. If I have questions, I am aware that I should contact my doctor. Patient/[employer]omatic T[employer] Tester Signature: Date/Time: Relationship to Patient: Witness Name/Signature: Date/Time: [facility] 01-22-2023 Note ORIGINAL EXAMINATION: CT OF THE ABDOMEN AND PELVIS WITH CONTRAST01/22/2023 8:54 pm TECHNIQUE: CT of the abdomen and pelvis was performed with the administration of intravenous contrast. Multiplanar reformatted images are provided for review. Automated exposure control, iterative reconstruction, and/or weight based adjustment of the mA/kV was utilized to reduce the radiation dose to as low as reasonably achievable. COMPARISON: None HISTORY: ORDERING SYSTEM PROVIDED HISTORY: Reason for Exam: states abd pain for 3 weeks, states lower Left side pain and cramping seemed worse on her period. pain FINDINGS: The liver is unremarkable in contour. Diffuse hypoattenuation of the liver consistent with hepatic steatosis. There is focal fatty sparing about the gallbladder fossa. No suspicious hepatic lesions. There is no intra or extrahepatic biliary duct dilation. Under distended gallbladder. The pancreas, spleen, and bilateral adrenal glands are unremarkable. The kidneys enhance symmetrically without evidence of hydronephrosis or suspicious lesions. The urinary bladder is without wall thickening or focal mass. No suspicious uterine or adnexal lesions. Tubal ligation changes No acute abnormality of the stomach or small bowel. Diverticulosis; pericolonic inflammation about the lower descending colon within the left lower quadrant. No drainable fluid collection, gross pneumoperitoneum, or free fluid within the abdomen or pelvis. No pathologically enlarged or aggressive appearing lymph nodes. Nonaneurysmal aortoiliac arteries. No acute osseous abnormality. No aggressive appearing osseous lesions. L5-S1 degenerative change. No acute abnormality within the partially visualized lower thorax. IMPRESSION: Acute diverticulitis. No abscess. No gross pneumoperitoneum. I have personally reviewed the images of this examination and agree with the resident's findings and interpretation. Interpreted by: Pankaj Broussard DO Preliminary Report By: [place] Electronically signed By Pankaj Broussard DO Dictated Date: 01/22/2023 9:14:00 PM Prelim Date: 01/22/2023 9:22:13 PM Sign Date: 01/22/2023 9:39:34 PM Ordering Provider: JD ESCALANTE [facility] Evaluation + Plan note No data available for this section [facility] Evaluation note No assessment inform ation available [facility] Work Phone: Evaluation note Diagnosis Encounter for screening mammogram for breast cancer [facility] for screening [facility] for breast cancer [facility] Diagnostic Procedure Only (Routine) - Pending Review Specialty Diagnoses / Procedures Referred By Contac t Referred To Contact [facility] Diagnoses Encounter for screening mammogram for breast cancer Procedures JASON SCREENING SCREENING MAMMOGRAPHY BI 2-VIEW BREAST INC CAD Joshua Vera MD [address] [place] [address] [facility] [address] [place] [address] Referral ID Status Reason Start Date Expiration Date Visits Requested Visits Authorized [id number] Pending Review Auto-Generat ed Referral 02/11/2023 03/12/2024 1 [facility] Diagnostic Procedure Only (Routine) - New Request Specialty Diagnoses / Procedures Referred By Contac t Referred To Contact [facility] Diagnoses Encounter for screening mammogram for breast cancer Procedures JASON SCREENING W KUSHAL SCREENING DIGITAL BREAST TOMOSYNTHESIS BI SCREENING MAMMOGRAPHY BI 2-VIEW BREAST INC CAD Joshua Vera MD [address] [place] [address] Br Imaging [address] [place] [address] Referral ID Status Reason Start Date Expiration Date Visits Requested Visits Authorized [id number] New Request Auto-Generat ed Referral 01/13/2024 02/11/2025 1 1 [facility] Chief Complaint and Reason for Visit Chief Complaint B/L FLANK PAIN, TYPE 2 DM Advance Directives No Advanced Directives Records Found Advance Directive Response Recorded Date/ Time Living Will No May 04, 022 8:07am Power of Technical Solutions Director No May 04, 2022 8:07am Advance Directive Response Recorded Date/ Time Living Will No May 04, 022 9:07am Power of Technical Solutions Director No May 04, 2022 9:07am Summary Purpose Family History No Family History Records Found Additional Source Comments Care Teams (unrecognized sec tion and content) Team Status: Active Member Role Status Dates Dr. Viki Durham DO Family Provider Active Dr. Lilian Byrd MD Primary Care Provider Active Team Status: Inactive Member Role Status Dates Dr. Lilian Byrd MD Primary Care Provider Active Dr. Vincent Fletcher DO Attending Provider, Sunny ojeda Active Team Status: Inactive Member Role Status Dates Dr. 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 Relationship Specialty Start Date End Date Joshua Vera MD [address] [place] [address] PCP - General Family Medicine 12/17/20 Goals (unrecognized section and content) Goals may be documented in a n alternate section No data available for this sectionGoals may be documented in an alternate section Source Comments (unrecognize d section and content) In the event this informatio n is protected by the Federal Confidentiality of Alcohol and Drug Abuse Patient Records regulations: The Federal rules restrict any use of the information to criminally investigate or prosecute any alcohol or drug abuse patient.[facility] the event this information is protected by the Federal Confidentiality of Alcohol and Drug Abuse Patient Records regulations: The Federal rules restrict any use of the information to criminally investigate or prosecute any alcohol or drug abuse patient.[facility] INFORMATION SOURCE (unrecogn ized section and content) DATE CREATED AUTHOR 01/19/2024 [facility] DATE CREATED AUTHOR AUTHOR'S GILMA ESQUIVEL 12/16/2024 [facility] FOR RECORDS PERTAINING TO PATIENTS WHO ARE OR HAVE BEEN ENROLLED IN A CHEMICAL DEPENDENCY/SUBSTANCEABUSE PROGRAM, SOME INFORMATION MAY BE OMITTED. This clinical summary was aggregated from multiple sources. Caution should be exercised in using it in the provision of clinical care. This summary normalizes information from multiple sources, and as a consequence, information in this document may materially change the coding, format and clinical context of patient data. In addition, data may be omitted in some cases. CLINICAL DECISIONS SHOULD BE BASED ON THE PRIMARY CLINICAL RECORDS. [facility]. provides no warranty or guarantee of the accuracy or completeness of information in this document.
[2025-05-19 12:35] LABS: Hematocrit 41.9 % (37-47); Hemoglobin 13.0 g/dL (12.0-15.0); Immature Granulocytes Count 0.050 X10^3/uL (0.0-0.0); Mean Corp Hgb Conc 31.0 g/dL (32-36); Mean Corpuscular Volume 82.6 fL (81-99); Mean Platelet Vol. 11.6 fl (6.2-12.0); NRBC Flagged by Analyzer 0 % (0-5); Platelet Count 334 K/mm3 (150-450); RBC Distribution Width CV 14.2 % (11.6-14.6); RBC Distribution Width SD 41.9 fl (35.1-43.9); Red Blood Count 5.07 M/mm3 (4.2-5.4); White Blood Count 7.9 K/mm3 (4.4-11.0)
[2025-05-19 12:50] LABS: Cholesterol 183 mg/dL (<=200); Low Density Lipoprotein Calc. 95 mg/dL; Triglycerides 148 mg/dL; Very Low Density Lipoprotein 30 mg/dL (5-40); cholesterol:hdl ratio screen 2.95
[2025-05-19 12:56] LABS: AST(SGOT) 31 U/L (<=31); Alanine Aminotransfer ALT/SGPT 25 U/L (<=34); Albumin, Serum 4.3 g/dL (3.5-5.0); Alkaline Phosphatase 69 U/L (35-104); Anion Gap 13 (5-15); BUN 6 mg/dL (4-19); BUN/Creat Ratio 7.3 RATIO (10-20); Calcium,Total 10.0 mg/dL (7.6-11.0); Carbon Dioxide 22.9 mmol/L (21.0-32.0); Chloride 97 mmol/L (98-108); Globulin 3.1 g/dL (2.2-4.2); Glucose 485 mg/dL (70-99); Potassium 4.1 mmol/L (3.3-5.1)
[2025-05-19 13:10] LABS: Creatinine, Urine (random) 67.10 mg/dL (28.00-217.00); Microalbumin,Random Urine 57.5 mg/L (<20 mg/L)
== END | disposition home or self-care (01) ==
LOC: BFHLAB 10:34
PROVIDERS: PCP Family Medicine; Visit Provider Family Medicine
DX: E11.65 Type 2 diabetes mellitus with hyperglycemia (principal)
CPT/HCPCS: 36415; 80053; 80061; 82043; 82570; 85025